=== PATIENT | male | born 1955 | race Caucasian/White ===

== ENCOUNTER 2016-04-06 17:32 | Inpatient (IN) | payer OTHER ==
--- NOTE | 2016-04-06 18:06 | CPEKG ---
Heart Rate: 100 RR Interval: 600 P-R Interval: 133 QRSD Interval: 92 QT Interval: 356 QTC Interval: 460 P [place]: 37 QRS [place]: 13 T Wave [place]: 25 EKG Severity - ABNORMAL ECG - EKG Impression: SINUS TACHYCARDIA EKG Impression: BORDERLINE ST DEPRESSION, ANTEROLATERAL LEADS Electronically Signed By: Amanda Rausch 06-Apr-2016 23:31:36
--- NOTE | 2016-04-06 18:06 | EDPHY ---
H & P Time Seen by Provider: 04/06/16 18:01 HPI/ROS: CHIEF COMPLAINT: Shortness of breath, chest congestion. HISTORY OF PRESENT ILLNESS: The patient is a 61-year old male with a history of mitral valve repair who presents with shortness of breath and fatigue. These symptoms began as a cold with chest congestion and cough. He first noticed the shortness of breath 2 days ago while hiking. It is worsened with exertion or lying down. He denies chest pain. He denies sore throat, rhinorrhea, fever, vomiting, or other complaints. He does believe that the symptoms are due to a viral process rather than of cardiac etiology. He had a transesophageal echocardiogram 02/[address] Faith Arechiga, cardiology, that showed a complication with his mitral valve repair and they are currently considering surgical options. REVIEW OF SYSTEMS: A complete 10-point review of systems was performed and is negative except for those items mentioned in the HPI. Past Medical/Surgical History: Mitral valve repair. Social History: Nonsmoker. Smoking Status: Never smoked Physical Exam: General Appearance: Alert, no distress Eyes: Pupils equal and round, no conjunctival pallor or injection ENT, Mouth: Mucous membranes moist Neck: Normal inspection Respiratory: Rales and crackles. Cardiovascular: 2/6 systolic murmur. Regular rate and rhythm Gastrointestinal: Abdomen is soft and non- tender Neurological: A&O, nonfocal, normal gait Skin: Warm and dry, no rash Extremities: Nontender, no pedal edema Psychiatric: Mood and affect normal Constitutional: Initial Vital Signs Temperature (C) 36.6 C 04/06/16 17:34 Heart Rate 104 H 04/06/16 17:34 Respiratory Rate 16 04/06/16 17:34 Blood Pressure 122/93 H 04/06/16 17:34 O2 Sat (%) 90 L 04/06/16 17:34 O2 Delivery Mode Room Air O2 (L/minute) 2 Allergies/Adverse Reactions: Penicillins Allergy (Unknown, Verified 09/16/12 07:48) Home Medications: Medication Instructions Recorded Zolpidem Tartrate [Ambien 5MG (RX)] 5 mg PO HS PRN 10/01/12 Aspirin EC [Aspirin EC 81 mg (*)] 81 mg PO HS 04/06/16 Cholecalciferol Vit D3 [Vitamin D3 1,000 units PO HS 01/15/17 (*)] Cyanocobalamin (Vitamin B-12) 1,000 mcg PO HS 04/06/16 [B-12] Medical Decision Making - Diagnostics Imaging: Chest x-ray reviewed by Ruel Thakur, radiology, reveals: Findings suggestive of COPD are noted. An element of superimposed congestive heart failure is seen. The asymmetric increased right lung opacity could reflect either pneumonia or atypical pulmonary edema. Study: CTA of the chest. Indication: Positive d-dimer. Results: 1. No evidence of thrombopulmonary embolic disease. 2. Diffuse alveolar opacities, much more pronounced on the right, are probably pneumonia. Given the extent of alveolar opacification and the relatively mild clinical symptomatology, atypical organism should be considered. Pulmonary edema is considered much less likely. 3. See above report for additional findings. The study was read by the radiologist, Dr. Thakur. I viewed the images myself on the PACS system. ED Course/Re-evaluation: Patient presents with shortness of breath. He is sure that he has an upper respiratory infection, though by clinical history does not have a sore throat or nasal congestion, so I concerned that may be a cardiac issue instead. Chest x-ray reveals right-sided infiltrate consistent with pneumonia or unilateral pulmonary edema. D-dimer is 1.65. CT pulmonary angiogram was ordered to rule out pulmonary embolism. Blood cultures were drawn and Levaquin 750 mg IV given. CTA results c/w pneumonia, no evidence of PE. Likely superimposed CHF, with elevated BNP and failed MVR/mitral regurgitation. 1835: Consulted with Dr. Licona, hospitalist. He accepts admission. Differential Diagnosis: Differential diagnosis includes though it is not limited to pneumonia, pneumothorax, pulmonary embolism, aortic dissection, pericarditis, acute coronary syndrome. - Data Points Laboratory Results: Laboratory Results 04/06/16 18:10 04/06/16 18:10 Medications Given: Discontinued Medications Furosemide (Lasix Injection) 40 mg IVP ONCE ONE Stop: 04/06/16 21:46 Last Admin: 04/06/16 22:06 Dose: 40 mg Furosemide (Lasix Injection) 40 mg IVP DAILY EMORY Stop: 10/04/16 08:59 Last Admin: 04/07/16 09:39 Dose: 40 mg Levofloxacin/Dextrose (Levaquin 750 Mg (Premix)) 150 mls @ 100 mls/hr IV EDNOW ONE PRN Reason: Protocol Stop: 04/06/16 19:59 Last Admin: 04/06/16 18:50 Dose: 150 mls Departure - Departure Disposition: [facility] Inpatient Acute Clinical Impression: Shortness of breath Pneumonia Qualifiers: Pneumonia type: due to unspecified organism Laterality: right Lung location: unspecified part of lung Qualifier Code: (J18.9) Pneumonia, unspecified organism Condition: Fair Report Scribed for: Amanda Rausch Report Scribed by: Jose Harkins Date of Report: 04/06/16 Time of Report: 18:02 Physician Review and Approval Statement: 04/06/16 18:02 Portions of this note were transcribed by a medical assistant per diem. I personally performed a history, physical exam, medical decision making, and confirmed accuracy of information the transcribed note.
[2016-04-06 18:20] LABS: % IMMATURE GRANULYOCYTES 0.5 % (0.0-1.1); ABSOLUTE IMMATURE GRANULOCYTES 0.05 10^3/uL (0.00-0.10); ADD DIFF? NO; ADD MORPH? NO; ADD SCAN? NO; ATYPICAL LYMPHOCYTE FLAG 0 (0-99); FRAGMENT RBC FLAG 0 (0-99); HEMATOCRIT 44.3 % (40.0-51.0); HEMOGLOBIN 15.1 g/dL (13.7-17.5); LEFT SHIFT FLG 0 (0-99); LIPEMIA HEMOLYSIS FLAG 90 (0-99); MEAN CELL HEMOGLOBIN 31.1 pg (27.9-34.1); MEAN CELL HEMOGLOBIN CONCENTR. 34.1 g/dL (32.4-36.7); MEAN CELL VOLUME 91.2 fL (81.5-99.8); MEAN PLATELET VOLUME 11.2 fL (8.7-11.7); PLATELET CLUMPS FLAG 0 (0-99); PLATELET COUNT 254 10^3/uL (150-400); RED BLOOD CELL COUNT 4.86 10^6/uL (4.40-6.38); RED CELL DISTRIBUTION WIDTH 12.5 % (11.5-15.2)
[2016-04-06 18:30] LABS: ANION GAP 12 mEq/L (8-16); CALCIUM 8.7 mg/dL (8.5-10.4); CARBON DIOXIDE 25 mEq/l (22-31); CHLORIDE 105 mEq/L (97-110); CREATININE 1.2 mg/dL (0.7-1.3); GLOMERULAR FILTRATION RATE > 60; GLUCOSE 112 mg/dL (70-100); POTASSIUM 4.2 mEq/L (3.5-5.2); SODIUM 142 mEq/L (134-144)
--- NOTE | 2016-04-06 18:36 | DX ---
PA and Lateral Chest - April 06, 2016 Clinical Indications: Cough and shortness of breath in a 61-year-old male. Comparison: October 08, 2012. Findings: Peribronchial thickening is seen and perihilar opacities bilaterally are noted. More prono unced alveolar opacities are seen on the right side. Small pleural effusions are present bilaterally. There is hyperexpansion seen with flattening of the hemidiaphragms noted. The heart is borderline e nlarged and there is mild pulmonary venous redistribution. Postoperative changes of valvular replacem ent are seen. Impression: Findings suggestive of COPD are noted. An element of superimposed congestive heart failur e is seen. The asymmetric increased right lung opacity could reflect either pneumonia or atypical pul monary edema. A preliminary report was called to Dr. Amanda Rausch at 1830 hours in the Emergency Department.
[2016-04-06 18:42] LABS: TROPONIN I 0.024 ng/mL (0-0.034)
[2016-04-06] MEDS ORDERED: IOPAMIDOL (ISOVUE 370) 75 ML BTL IV ONE (18:53)
--- NOTE | 2016-04-06 20:33 | CT ---
CT Pulmonary Angiogram Clinical Indications: Shortness of breath, alveolar opacities and elevated D-dimer, in a 61-year-old male with a cardiac history. Evaluate for pulmonary embolic disease. Technique: Thinly collimated multidetector helical CT imaging was performed through the chest while 90 mL of Isovue-370 were injected intravenously without complication. The images were obtained at 4- mm thickness and reconstructed at 1.5-mm thickness. Sagittal and coronal reconstructions were perform ed. The examination was reviewed on the workstation by the interpreting physician at multiple window/ level settings. Dose reduction techniques were utilized. Findings: Chest: There is extensive right lung alveolar opacification with numerous air bronchograms. A large right pleural effusion is identified. Patchy left lung alveolar opacities are noted and there is a mo derate left pleural effusion. Bibasilar atelectasis is noted. The heart is enlarged and postoperative changes of mitral valve replacement are seen. The upper abdomen is negative for acute abnormality on this arterial phase study. CT Pulmonary Angiogram: The pulmonary arterial system is well opacified. No intraluminal filling d efects are seen to suggest acute or chronic thrombopulmonary embolic disease. No vascular malformatio ns are seen. There is mild dilatation of the ascending aorta with a diameter estimated at 3.8 cm. No dissection is seen. Impression: 1. No evidence of thrombopulmonary embolic disease. 2. Diffuse alveolar opacities, much more pronounced on the right, are probably pneumonia. Given the e xtent of alveolar opacification and the relatively mild clinical symptomatology, atypical organism sh ould be considered. Pulmonary edema is considered less likely. 3. See above report for additional findings. A preliminary report was called to Dr. Amanda Rausch at 2005 hours in the Emergency Department.
--- NOTE | 2016-04-06 21:33 | PDGENHP ---
History and Physical History and Physical: Chief Complaint: shortness of breath History of presenting illness: This is a 61 yo male with history of mitral valvuloplasty ring repair for severe mitral regurgitation done by Dr. Yen in September of 2012 who presents with 2 days of intermittent shortness of breath. Patient has been hiking the past few days and reports increased dyspnea on exertion. His shortness of breath is worse with laying flat. He endorses 3 pillow orthopnea. Denies any leg swelling. He denies any chest pain. He denies any weight gain. He has been taking Mucinex and Tylenol which have helped with some congestion that he has but not with his shortness of breath. He denies any fevers or chills. He reports an occasional nonproductive cough. His for had upper respiratory infection a few weeks ago which had some of the same characteristics. 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 Faith Arechiga last month where a transesophageal echocardiogram was done that showed moderate to severe mitral regurgitation. He has been in discussions with Dr. Claudio regarding mitral valve surgery. Past medical history: BPH, mitral valve regurgitation Past surgical history: Mitral valvuloplasty ring and closure of a left atrial appendage done by Dr. Yen in 2012 Home medications: Reviewed refer to [facility] for details Allergies: Penicillin Social history: Denies any tobacco use. He drinks alcohol occasionally. He lives at [place] with his and children Family history: Reviewed and noncontributory Review of systems: A comprehensive 10 point review systems was done that was negative except for what was mentioned in the HPI and below. PHYSICAL EXAM: Selected Entries 04/06/16 04/06/16 17:34 21:04 Heart Rate 97 Respiratory 18 Rate O2 Sat (%) 90 L 91 L Temperature (C) 36.9 C Blood Pressure 116/78 Mean Arterial 90 Pressure (MAP) O2 (L/minute) 3.5 O2 Delivery Room Air Nasal Cannula Mode GENERAL: Well-appearing, no acute distress, nontoxic appearing HEENT: Head is normocephalic atraumatic, eyes are PERRLA, ears are normal appearing, mucous membranes are moist without lesions CARDIOVASCULAR: Regular rate and rhythm; normal S1 and S2, Loud systolic murmur loudest at the apex ; palpable thrill ; there is no JVD there is no lower extremity edema PULMONARY: diminished breath sounds right base with some dullness to percussion ; no respiratory distress ;no wheezes or rales ABDOMINAL/GASTROINTESTINAL: Soft, nontender, nondistended with normoactive bowel sounds. There is no guarding or rebound tenderness. GENITOURINARY: No Chambers in place EXTREMITIES: No clubbing, cyanosis, or edema NEUROLOGIC: Cranial nerves 2-12 are grossly intact; face symmetric; moves all other extremities; speech is fluent; alert and oriented to person, place, and time SKIN: There are no rashes; I did not examine the patient for decubiti Diagnostics: 04/06/16 04/06/16 18:10 18:40 WBC 10.78 H Hgb 15.1 Hct 44.3 Plt Count 254 D-Dimer 1.65 H VBG Lactic Acid 1.4 Sodium 142 Potassium 4.2 Chloride 105 Carbon Dioxide 25 Anion Gap 12 BUN 19 Creatinine 1.2 Estimated GFR > 60 Calcium 8.7 Troponin I 0.024 NT-Pro-B Natriuret Pep 2990 H Imaging: I reviewed the CT angiogram with Dr. Thakur see the results below: Impression: 1. No evidence of thrombopulmonary embolic disease. 2. Diffuse alveolar opacities, much more pronounced on the right, are probably pneumonia. Given the extent of alveolar opacification and the relatively mild clinical symptomatology, atypical organism should be considered. Pulmonary edema is considered less likely. 3. See above report for additional findings. Visualized and personally interpreted the EKG that showed sinus tachycardia at rate 100 beats per minute some ST depression in leads V1 Transesophageal echocardiogram done in February of 2016 was reviewed showing: Moderate to severe mitral regurgitation Assessment/plan: This is a 61 yo male with history of mitral valve repair presenting with dyspnea on exertion and orthopnea most likely due to: # Acute systolic congestive heart failure with known moderate to severe mitral regurgitation - I discussed case with Dr. Bonilla from cardiology will see the patient in consultation tomorrow. - Start IV Lasix overnight - consider thoracentesis tomorrow as indicated # Diffuse alveolar opacities most likely due to pulmonary edema however per Radiology there is some concerns for a atypical pneumonia. Clinically the patient's symptoms are more consistent with acute heart failure. - Blood cultures have been drawn in the emergency department - will continue Levaquin that was started in the emergency department and consider discontinuing antimicrobials if he improves with diuretics #BPH, chronic # Random glucose of 112 - recommend outpatient screening for diabetes mellitus patient will be admitted to the hospital under inpatient status.
[2016-04-06] MEDS ORDERED: ACETAMINOPHEN 325 MG TAB PO PRN (21:45)
[2016-04-06] MEDS ORDERED: ONDANSETRON 4 MG/2 ML VIAL IVP PRN (21:45)
[2016-04-06] MEDS ORDERED: FUROSEMIDE 40 MG/4 ML VIAL IVP ONE (21:45)
[2016-04-06] MEDS ORDERED: ZOLPIDEM TARTRATE 5 MG TAB PO PRN (21:46)
[2016-04-07 04:55] LABS: % IMMATURE GRANULYOCYTES 0.5 % (0.0-1.1); ABSOLUTE IMMATURE GRANULOCYTES 0.05 10^3/uL (0.00-0.10); ADD DIFF? NO; ADD MORPH? NO; ADD SCAN? NO; ATYPICAL LYMPHOCYTE FLAG 10 (0-99); FRAGMENT RBC FLAG 0 (0-99); HEMATOCRIT 39.9 % (40.0-51.0); HEMOGLOBIN 13.7 g/dL (13.7-17.5); LEFT SHIFT FLG 0 (0-99); LIPEMIA HEMOLYSIS FLAG 90 (0-99); MEAN CELL HEMOGLOBIN 31.7 pg (27.9-34.1); MEAN CELL HEMOGLOBIN CONCENTR. 34.3 g/dL (32.4-36.7); MEAN CELL VOLUME 92.4 fL (81.5-99.8); MEAN PLATELET VOLUME 11.3 fL (8.7-11.7); PLATELET CLUMPS FLAG 40 (0-99); PLATELET COUNT 219 10^3/uL (150-400); RED BLOOD CELL COUNT 4.32 10^6/uL (4.40-6.38); RED CELL DISTRIBUTION WIDTH 12.4 % (11.5-15.2)
[2016-04-07 05:10] LABS: ANION GAP 8 mEq/L (8-16); CALCIUM 8.4 mg/dL (8.5-10.4); CARBON DIOXIDE 27 mEq/l (22-31); CHLORIDE 105 mEq/L (97-110); CREATININE 1.1 mg/dL (0.7-1.3); GLOMERULAR FILTRATION RATE > 60; GLUCOSE 97 mg/dL (70-100); POTASSIUM 4.5 mEq/L (3.5-5.2); SODIUM 140 mEq/L (134-144)
[2016-04-07] MEDS ORDERED: FUROSEMIDE 40 MG/4 ML VIAL IVP SCH (09:00)
[2016-04-07] MEDS: ENOXAPARIN 40 MG/0.4 ML SYR SC SCH (09:43)
--- NOTE | 2016-04-07 09:46 | SOAPPROG ---
JOJO Progress Note Assessment/Plan: Assessment:1.mv repair 2013..now with mod/severe MR...assessing re do surgery...now with chf ?worsened with recent uri...plan lasix siuresis for now and thoracentesis if needed Plan:1. as ordered 04/07/16 09:44 Subjective: pt feeling better today...discussed options with pt..for now will continue iv lasix diuresis and re check cxr tomorrow..if pleural effusion worse the thoracentesis Objective: Vital Signs Temp Pulse Resp BP Pulse Ox 36.7 C 93 18 98/74 L 93 04/07/16 08:00 04/07/16 08:00 04/07/16 08:00 04/07/16 08:00 04/07/16 08:00 Laboratory Results 04/07/16 04:41 04/07/16 04:41 04/06/16 04/07/16 04/08/16 05:59 05:59 05:59 Intake Total 450 Output Total 1200 Balance -750 Physical Exam - Physical Exam Respiratory: crackles Cardiac/Chest: normal peripheral pulses, regular rate, rhythm, systolic murmur, No JVD ICD10 Worksheet Patient Problems: Problems Problem Status Diagnosed Pneumonia Acute Shortness of breath Acute
--- NOTE | 2016-04-07 19:04 | HOSPPROG ---
Hospitalist Progress Note Assessment/Plan: * Acute respiratory failure - CHF vs. atypical PNA -s/p IV lasix -continue levaquin * Pleural effusion - small -recheck CXR in am after diuresis - doubt thoracentesis needed * Hypotension - suspect due to IV lasix -decrease lasix - change to PO * Mod/severe MR s/p failed MV repair -re-do mitral valve replacement pending Subjective: SOB much better since admission Objective: Vital Signs Temp Pulse Resp BP Pulse Ox 36.7 C 87 16 89/70 L 93 04/07/16 16:00 04/07/16 16:00 04/07/16 16:00 04/07/16 16:00 04/07/16 16:00 Laboratory Results 04/07/16 04:41 04/07/16 04:41 04/06/16 04/07/16 04/08/16 05:59 05:59 05:59 Intake Total 450 700 Output Total 1200 1350 Balance -750 -650 d/w Dr. Eldridge - keep in hospital until am - try to avoid paracentesis CT chest: bilateral infiltrates more c/w atypical infection rather than CHF - Physical Exam Constitutional: no apparent distress, appears nourished, not in pain Cardiovascular: regular rate and rhythym, no murmur, rub, or gallop Respiratory: no respiratory distress, no rales or rhonchi, clear to auscultation , inspiratory crackles Gastrointestinal: normoactive bowel sounds, soft, non-tender abdomen, no palpable masses Skin: no rashes or abrasions, no fluctuance, no induration Neurologic: AAOx3, sensation intact bilaterally Psychiatric: interacting appropriately, not anxious, not encephalopathic, thought process linear ICD10 Worksheet Patient Problems: Problems Problem Status Diagnosed Pneumonia Acute Shortness of breath Acute
[2016-04-07] MEDS ORDERED: ASPIRIN EC 81 MG TAB PO SCH (21:00)
[2016-04-07 22:55] VITALS: RESP 18
[2016-04-08 05:07] LABS: % IMMATURE GRANULYOCYTES 0.7 % (0.0-1.1); ABSOLUTE IMMATURE GRANULOCYTES 0.06 10^3/uL (0.00-0.10); ADD DIFF? NO; ADD MORPH? NO; ADD SCAN? NO; ATYPICAL LYMPHOCYTE FLAG 10 (0-99); FRAGMENT RBC FLAG 0 (0-99); HEMATOCRIT 41.1 % (40.0-51.0); HEMOGLOBIN 13.9 g/dL (13.7-17.5); LEFT SHIFT FLG 0 (0-99); LIPEMIA HEMOLYSIS FLAG 90 (0-99); MEAN CELL HEMOGLOBIN 31.5 pg (27.9-34.1); MEAN CELL HEMOGLOBIN CONCENTR. 33.8 g/dL (32.4-36.7); MEAN CELL VOLUME 93.2 fL (81.5-99.8); MEAN PLATELET VOLUME 11.4 fL (8.7-11.7); PLATELET CLUMPS FLAG 0 (0-99); PLATELET COUNT 222 10^3/uL (150-400); RED BLOOD CELL COUNT 4.41 10^6/uL (4.40-6.38); RED CELL DISTRIBUTION WIDTH 12.6 % (11.5-15.2)
[2016-04-08 05:20] LABS: ANION GAP 8 mEq/L (8-16); CALCIUM 8.6 mg/dL (8.5-10.4); CARBON DIOXIDE 29 mEq/l (22-31); CHLORIDE 102 mEq/L (97-110); GLOMERULAR FILTRATION RATE > 60; GLUCOSE 91 mg/dL (70-100); POTASSIUM 4.3 mEq/L (3.5-5.2); SODIUM 139 mEq/L (134-144)
[2016-04-08 05:34] VITALS: O2SAT 96
[2016-04-08 08:31] VITALS: BP 84/64; PULSE 82; TEMP 98.1
[2016-04-08] MEDS: ENOXAPARIN 40 MG/0.4 ML SYR SC SCH (08:39)
[2016-04-08] MEDS ORDERED: FUROSEMIDE 20 MG TAB PO SCH (09:00)
--- NOTE | 2016-04-08 09:44 | PDCARPN ---
Cardiology Progress Note Assessment/Plan: Assessment/plan: 61-year-old male with mitral valve regurgitation status post mitral valve repair in 2013. This repair his field in the now has severe mitral regurgitation along with significant tricuspid regurgitation. He was admitted on 04/06 with a combination of pneumonia (likely viral versus atypical bacterial) and heart failure. He has improved with diuresis and antibiotics. 1. heart failure: Appears to be related to his valvular disease and triggered by pneumonia. Agree with joe Stewart. He has not previously been able to tolerate beta-blockers and John inhibitors due to underlying low blood pressure. We discussed the increased urgency for redo valve surgery. He has seen Dr. Claudio and would also like to visit with Dr. Strong 2. Pneumonia: Flu is negative. Legionella is pending. On Levaquin. He will complete this course. 3. Wide complex tachycardia: This was asymptomatic. He had a single 6 beat run. He has previously been unable to tolerate beta-blockers. Ejection fraction is above 35%. Previously did not have coronary disease. He appears stable for discharge from a cardiac standpoint. Discussed with Dr. Orellana 04/08/16 10:43 Subjective: Reynaldo feels better. His shortness of breath has improved since admission. He does feel little bit short of breath when lying down. The only time he notices the cough with as with lying down. At the end of last week he developed cough that was not productive. He has not had a fever. He has not had swelling. He denies palpitations, chest pain, syncope. His had had a cold a week previously. Reviewed/Discussed With: hospitalist Objective: Vital Signs (8 Hrs) Temp Pulse Resp BP Pulse Ox 04/08/16 08:00 36.7 C 82 18 84/64 L 96 04/08/16 04:00 36.8 C 59 L 18 92/69 L 96 Intake/Output (24 Hrs) 04/07/16 04/08/16 04/09/16 05:59 05:59 05:59 Intake Total 450 1150 Output Total 1200 2050 Balance -750 -900 Intake: Oral (ml) 350 1150 IV Infused (ml) 100 Output: Urine (ml) 1200 2050 Toilet 900 2050 Other: Weight 59.6 kg Number of Voids Toilet 2 2 Number of Stools Toilet 1 No acute distress. JVP less than 10. regular rate and rhythm with harsh holosystolic murmur heard throughout the precordium. No S3. No S4. Occasional rhonchi throughout the right lung, more prominent at the right base. No lower extremity edema Neuro alert and oriented x3 without gross focal neurologic deficits. Appropriate mood and affect chest x-ray reviewed x2: today's film compared with admission shows worsening consolidation in the right lung. However bilateral pleural effusions are Improved. Result Diagrams: 04/08/16 04:00 04/08/16 04:00 EKG: reviewed from 04/06: Sinus rhythm with minimal anterolateral ST depression Telemetry: sinus rhythm. A 6 beat run of wide complex tachycardia on 04/07 ICD10 Worksheet Patient Problems: Problems Problem Status Diagnosed Pneumonia Acute Shortness of breath Acute
--- NOTE | 2016-04-08 10:55 | DX ---
Chest, One View Portable at 0625 hours History: Congestive heart failure, dyspnea. Comparison: April 06, 2016 Findings: Cardiac silhouette is mildly enlarged. Worsening diffuse bilateral increased interstitial markings likely representing worsening congestive heart failure. No definite pleural effusion. No pne umothorax. Impression: 1. Worsening bilateral diffuse interstitial pulmonary edema. 2. No pneumothorax
--- NOTE | 2016-04-08 20:05 | GDS ---
[f rep st] DISCHARGE SUMMARY DISCHARGE DIAGNOSES: 1. Atypical pneumonia. 2. Acute respiratory failure. 3. Chronic hypotension. 4. Moderate to severe mitral regurgitation, status post failed mitral valve repair. HISTORY: The patient is a 61-year-old male, who presented with increasing shortness of breath and bi lateral pulmonary infiltrates. CT angiogram of chest was negative for PE. Infiltrates by CT were mo re consistent with atypical infection. He does, however, have [id number] mitral regurgitatio n and has had a previous mitral valve repair which is failing and pending redo. His shortness of isabella ath was very positional in nature with PND and orthopnea, so CHF was felt to be a definite component. He was seen here in consultation with cardiology. He received both Lasix and antibiotics and he di d improve. After diuresis, followup chest x-ray did show some ongoing blossoming of infiltrates, whi ch makes me think infection is the more predominant underlying problem. Perhaps his known valvular d isease, however, did lead to some superimposed pulmonary edema. He did improve with antibiotics. His diuresis is limited by hypotension. We do not feel that he is going to need chronic Lasix, so he wa s given a prescription at discharge only for as needed. He was initially thought to have a pleural e ffusion; however, repeat chest x-ray showed this to be quite minimal and no thoracentesis was needed. He will continue to follow up closely with Cardiology and CT surgery regarding his eventual need fo r a mitral valve replacement. DISCHARGE MEDICATIONS: Please see computer record for full detailed list. New medications: 1. Levaquin 750 mg p.o. daily for 7 more days. 2. Lasix 20 mg p.o. daily as needed for persistent shortness of breath and positional orthopnea jesus tional. DISCHARGE INSTRUCTIONS: Follow up with Cardiology and CT Surgery regarding needed mitral valve repla cement. Greater than 30 minutes' of time was spent arranging discharge. Patient seen and examined by me on day of discharge. /[id number]/MODL
== END 2016-04-08 11:36 | disposition home or self-care (01) | DRG 193 ==
LOC: F2W 21:15
PROVIDERS: ADMIT Family Medicine; ATTEND Internal Medicine
DX: J18.9 Pneumonia, unspecified organism (principal); J96.00 Acute respiratory failure, unspecified whether with hypoxia or hypercapnia; J90 Pleural effusion, not elsewhere classified; I34.0 Nonrheumatic mitral (valve) insufficiency; I50.9 Heart failure, unspecified
CPT/HCPCS: 87449-90; 96365; 96366; J1650; J1956

== ENCOUNTER 2016-04-24 08:52 | Observation (INO) | payer OTHER ==
[2016-04-24] MEDS ORDERED: NS 1,000 ML IV ONE (08:55)
[2016-04-24] MEDS ORDERED: ASPIRIN EC 325 MG TAB PO ONE (08:55)
[2016-04-24] MEDS ORDERED: DIAZEPAM 5 MG TAB PO ONE (08:55)
[2016-04-24] MEDS ORDERED: diphenhydrAMINE 25 MG CAP PO ONE (08:55)
[2016-04-24] MEDS ORDERED: FAMOTIDINE 20 MG TAB PO ONE (08:55)
--- NOTE | 2016-04-24 09:17 | CPEKG ---
Heart Rate: 86 RR Interval: 698 P-R Interval: 160 QRSD Interval: 94 QT Interval: 416 QTC Interval: 498 P [place]: 54 QRS [place]: 12 T Wave [place]: 30 EKG Severity - BORDERLINE ECG - EKG Impression: SINUS RHYTHM EKG Impression: BORDERLINE PROLONGED QT INTERVAL EKG Impression: SUPRAVENTICULAR PREMATURE CONTRACTIONS Electronically Signed By: Ghazala Hedrick 24-Apr-2016 15:57:17
[2016-04-24 09:37] LABS: % IMMATURE GRANULYOCYTES 0.3 % (0.0-1.1); ABSOLUTE IMMATURE GRANULOCYTES 0.02 10^3/uL (0.00-0.10); ADD DIFF? NO; ADD MORPH? NO; ADD SCAN? NO; ATYPICAL LYMPHOCYTE FLAG 0 (0-99); FRAGMENT RBC FLAG 0 (0-99); HEMATOCRIT 42.8 % (40.0-51.0); HEMOGLOBIN 14.3 g/dL (13.7-17.5); LEFT SHIFT FLG 0 (0-99); LIPEMIA HEMOLYSIS FLAG 80 (0-99); MEAN CELL HEMOGLOBIN 31.4 pg (27.9-34.1); MEAN CELL HEMOGLOBIN CONCENTR. 33.4 g/dL (32.4-36.7); MEAN CELL VOLUME 93.9 fL (81.5-99.8); MEAN PLATELET VOLUME 11.3 fL (8.7-11.7); PLATELET CLUMPS FLAG 0 (0-99); PLATELET COUNT 262 10^3/uL (150-400); RED BLOOD CELL COUNT 4.56 10^6/uL (4.40-6.38)
[2016-04-24 09:47] LABS: INR 1.09 (0.83-1.16)
[2016-04-24 09:54] LABS: ANION GAP 8 mEq/L (8-16); CALCIUM 8.7 mg/dL (8.5-10.4); CARBON DIOXIDE 28 mEq/l (22-31); CHLORIDE 105 mEq/L (97-110); CHOLESTEROL 146 mg/dL (140-220); CHOLESTEROL/HDL RATIO 2.98 RATIO (1.00-4.97); GLOMERULAR FILTRATION RATE > 60; GLUCOSE 91 mg/dL (70-100); HIGH DENSITY LIPOPROTEIN 49 mg/dL (40-65); LDL/HDL RATIO 1.69 RATIO (1.00-3.64); LOW DENSITY LIPOPROTEIN 83 mg/dL (80-100); NON-HIGH DENSITY LIPOPROTEIN 97 mg/dL (90-129); POTASSIUM 4.6 mEq/L (3.5-5.2); SODIUM 141 mEq/L (134-144); TRIGLYCERIDE 71 mg/dL (40-150); VERY LOW DENSITY LIPOPROTEINS 14 mg/dL (8-25)
[2016-04-24] MEDS ORDERED: LIDOCAINE 1% 30 ML SDV ONE (11:11)
[2016-04-24] MEDS ORDERED: VERAPAMIL 5 MG/2 ML VIAL ONE (11:12)
[2016-04-24] MEDS ORDERED: fentaNYL 100 MCG/2 ML INJ ONE (11:12)
[2016-04-24] MEDS ORDERED: MIDAZOLAM 2 MG/2 ML VIAL ONE (11:12)
[2016-04-24] MEDS ORDERED: IOPAMIDOL (ISOVUE-370) 150 ML BTL IV ONE ×2 (11:12→12:15)
[2016-04-24] MEDS ORDERED: HEPARIN 10,000 UNIT/10 ML MDV ONE (11:12)
--- NOTE | 2016-04-24 12:42 | PDDXCAT ---
Diagnostic Cath Note - . Date: 04/24/16 Intervention: None Heat Treater Helper: Dr. David Dean Indication: Diagnostic catheterization pre mitral valve replacement scheduled tomorrow 04/25/[address] Strong. *Procedure Access: right radial Procedure: left heart catheterization, coronary angiography, left ventriculogram , right heart catheterization *Materials Left Heart Cath size: 5F Left Heart Cath materials: JL3.5, JR4.0, pigtail Right Heart Cath size: 5F Right Heart Cath materials: PWP catheter *Findings-Left Heart Catheterization LM: 6 mm in size. Bifurcates into an LAD and circumflex system. No disease is identified. LAD: 4.5 mm in size. There is no evidence of flow-limiting disease with MACRINA III flow throughout. LCX: 2.5 mm in size. There is no evidence of flow-limiting disease with MACRINA III flow throughout. RCA: Dominant (gives rise to PDA and PLV branches), 5 mm in size. There is no evidence of flow-limiting disease with MACRINA III flow throughout. EDP: 14 mmHg LVEF: 42% via planimetry Wall motion: Distal anterior wall and apical hypokinesis The visualized portion of the thoracic aorta revealed three sinuses of Valsalva. There was no evidence of aneurysm or dissection. There is severe mitral regurgitation with severe left atrial enlargement. *Findings-Right Heart Catheterization RA: 14/10/9 mmHg; SVC = 64.7% RV: 56/7/15 mmHg PA: 62/27/42 mmHg; PA SAT = 63.9% PAOP: 25/44/28 mmHg; There are large V waves on pressure trace consistent with severe mitral regurgitation. AO: 85/57/69 mmHg; AO SAT = 93.9% CO: 3.6 L/min CI: 2.14 L/min/m^2 *Summary Complications: None Estimated blood loss: <50ml Closure method: TR Band Assessment: There is moderate pulmonary hypertension with large V waves in the pulmonary capillary wedge tracing consistent with severe mitral regurgitation and severe left atrial enlargement with reduced ejection fraction of the left ventricle measured at 42% with planimetry. There is no evidence of coronary artery disease or flow-limiting obstruction with MACRINA III flow throughout the right dominant coronary circulation. Patient Problems: Problems Problem Status Diagnosed Pneumonia Acute Shortness of breath Acute
[2016-04-24] MEDS ORDERED: ACETAMINOPHEN 325 MG TAB PO PRN (12:44)
[2016-04-24] MEDS ORDERED: ATROPINE SULFATE 1 MG/10 ML SYR IVP PRN (12:44)
[2016-04-24] MEDS ORDERED: NITROGLYCERIN 0.4 MG BTL SL PRN (12:44)
[2016-04-24] MEDS ORDERED: ONDANSETRON DISINTEGRATING 4 MG TAB PO PRN (12:44)
[2016-04-24] MEDS ORDERED: ONDANSETRON 4 MG/2 ML VIAL IVP PRN (12:44)
[2016-04-24] MEDS ORDERED: ZOLPIDEM TARTRATE 5 MG TAB PO PRN (13:47)
[2016-04-24 15:48] VITALS: BP 83/60; PULSE 71; RESP 18; TEMP 98.1; O2SAT 95
[2016-04-24] MEDS ORDERED: CHLORHEXIDINE GLUC HIBICLENS 118 ML BTL TP ONE (15:48)
--- NOTE | 2016-04-24 16:42 | US ---
Bilateral Duplex Carotid Sonography Clinical Indications: Follow-up for carotid artery disease. Preoperative evaluation prior to mitral v alve replacement surgery. Technique: The cervical portions of the carotid and vertebral arteries were imaged and interrogated by color and pulsed Doppler. Spectral analysis was performed. Findings: Comparison the prior ultrasound study from March 31, 2013. Right Carotid: The common carotid artery, bifurcation, and origin of the internal and external carot id artery are well imaged. No significant plaque is identified. Doppler velocity estimates and color Doppler spectra are normal. No evidence of flow-limiting stenosis. No focal plaque identified. Left Carotid: The common carotid artery, bifurcation, and origin of the internal and external caroti d artery are well imaged. No significant plaque is identified. Doppler velocity estimates and color Doppler spectra are normal. No evidence of flow-limiting stenosis. No focal plaque identified.. Vertebral Arteries: Antegrade flow is shown by pulsed Doppler of each vertebral artery. Impression: No evidence of flow-limiting carotid stenosis. No significant plaque formation on either side stable when compared to the prior study. Measurement of carotid stenosis is based on velocity parameters that correlate the residual internal carotid diameter with [place] Symptomatic Carotid Endarterectomy Trial (NASCET) based stenosis levels.
[2016-04-24] MEDS ORDERED: CYANO/VITAMIN B12 1000 MCG TAB PO SCH (21:00)
[2016-04-24] MEDS ORDERED: MUPIROCIN 2% 22 GM OINT NS SCH (21:00)
[2016-04-24] MEDS ORDERED: NON-FORMULARY NEW DRUG (Cyanocobalamin (Vitamin B-12) [B-12] 1,000 MCG) PO SCH (21:00)
[2016-04-24] MEDS ORDERED: ASPIRIN EC 81 MG TAB PO SCH (21:00)
[2016-04-24] MEDS ORDERED: CHOLECALCIFEROL VIT D3 1,000 UNITS TAB PO SCH (21:00)
== END 2016-04-24 17:27 | disposition home or self-care (01) ==
LOC: FCATH 08:52 → F2W 12:53 → INTOOBSV 12:53 → F2W 14:45 → UNDODISIN 15:11
PROVIDERS: ADMIT Thoracic Surgery (Cardiothoracic Vascular Surgery); ATTEND Thoracic Surgery (Cardiothoracic Vascular Surgery)
PROC: 4A023N8 Measurement of Cardiac Sampling and Pressure, Bilateral, Percutaneous Approach (ICD-10-PCS; principal; 2016-04-24)
PROC: B2111ZZ Fluoroscopy of Multiple Coronary Arteries using Low Osmolar Contrast (ICD-10-PCS; 2016-04-24)
PROC: B2151ZZ Fluoroscopy of Left Heart using Low Osmolar Contrast (ICD-10-PCS; 2016-04-24)
DX: Z01.810 Encounter for preprocedural cardiovascular examination (principal); I34.0 Nonrheumatic mitral (valve) insufficiency; I51.7 Cardiomegaly; I27.2 Other secondary pulmonary hypertension; Z98.890 Other specified postprocedural states
CPT/HCPCS: 93005; 93460; 93880; C1769; J1644; J2250; J3010; Q9967

== ENCOUNTER 2016-04-25 05:55 | Inpatient (IN) | payer OTHER ==
[2016-04-25] MEDS ORDERED: PROTAMINE SULFATE 50 MG/5 ML VIAL IVP ONE (06:21)
[2016-04-25] MEDS ORDERED: POTASSIUM Cl (KCl) 20 MEQ/50 ML BAG IV ONE (06:22)
[2016-04-25] MEDS ORDERED: CALCIUM CHLORIDE 1 GM/10 ML INJ ONE ×2 (06:22→06:26)
[2016-04-25] MEDS ORDERED: MILRINONE/DEXTROSE/100 ML BAG IV ONE (06:22)
[2016-04-25] MEDS ORDERED: NA BICARBONATE 50 MEQ/50 ML VIAL ONE (06:23)
[2016-04-25] MEDS ORDERED: DOPamine/DEXTROSE/250 ML BAG IV ONE (06:23)
[2016-04-25] MEDS ORDERED: niCARdipine/NACL/200 ML BAG IV ONE (06:23)
[2016-04-25] MEDS ORDERED: AMINOCAPROIC ACID 5 GM/20 ML VIAL ONE ×2 (06:23→06:26)
[2016-04-25] MEDS ORDERED: AMIODARONE HCL 150 MG/3 ML VIAL ONE ×2 (06:24→06:26)
[2016-04-25] MEDS ORDERED: ADENOSINE 6 MG/2 ML VIAL ONE (06:24)
[2016-04-25] MEDS ORDERED: HEPARIN 10,000 UNIT/10 ML MDV ONE ×2 (06:25→06:27)
[2016-04-25] MEDS ORDERED: ceFAZolin 1 GM VIAL ONE (06:25)
[2016-04-25] MEDS ORDERED: LIDOCAINE 2% 100 MG/5 ML SYR IVP ONE ×2 (06:26→07:29)
[2016-04-25] MEDS ORDERED: ALBUMIN 5% 250 ML BOTTLE IV ONE (06:26)
[2016-04-25] MEDS ORDERED: methylPREDNISolone SOD SUCC 1 GM/8 ML VIAL ONE (06:27)
[2016-04-25] MEDS ORDERED: MAGNESIUM SULFATE 1 GM/2 ML VIAL ONE (06:27)
[2016-04-25] MEDS ORDERED: LR 1,000 ML IV ONE (06:41)
[2016-04-25] MEDS ORDERED: LIDOCAINE 1% 5 ML SDV ID PRN (06:41)
[2016-04-25] MEDS ORDERED: MUPIROCIN 2% 22 GM OINT ONE (06:48)
[2016-04-25] MEDS ORDERED: LIDOCAINE 1% 5 ML SDV ONE (06:48)
[2016-04-25] MEDS ORDERED: CEFAZOLIN 2 GM/DEXTROSE/100 ML BAG IV ONE (06:48)
[2016-04-25] MEDS ORDERED: SKIN ADHESIVE (DERMABOND) 1 EACH TP ONE (06:53)
[2016-04-25] MEDS ORDERED: MINERAL OIL 10 ML VIAL TP ONE (06:54)
[2016-04-25] MEDS ORDERED: CITRATE DEXTROSE SOLN 500 ML BAG ONE (06:54)
[2016-04-25] MEDS ORDERED: MIDAZOLAM 2 MG/2 ML VIAL ONE ×3 (07:06→07:25)
[2016-04-25] MEDS ORDERED: PROPOFOL/EMULSION 500 MG/50 ML BOTTLE IV ONE ×2 (07:25→10:56)
[2016-04-25] MEDS ORDERED: REMIFENTANIL HCL 1 MG VIAL ONE ×2 (07:25→10:56)
[2016-04-25] MEDS ORDERED: fentaNYL 250 MCG/5 ML INJ ONE (07:25)
[2016-04-25] MEDS ORDERED: ROCURONIUM 100 MG/10 ML VIAL ONE ×2 (07:28→13:58)
[2016-04-25] MEDS ORDERED: ROCURONIUM 50 MG/5 ML VIAL ONE (07:28)
[2016-04-25] MEDS ORDERED: DEXAMETHASONE 4 MG/ML VIAL ONE ×2 (07:29)
[2016-04-25] MEDS ORDERED: ONDANSETRON 4 MG/2 ML VIAL ONE (07:29)
[2016-04-25] MEDS ORDERED: PHENYLEPHRINE HCL 100 MCG/ML SYR ONE ×2 (07:39→09:14)
[2016-04-25] MEDS ORDERED: epHEDrine SULFATE 10 MG/ML SYR ONE ×3 (07:39→08:06)
[2016-04-25] MEDS ORDERED: MAGNESIUM SULF 2 GM/WATER 50 ML BAG IV ONE (11:18)
[2016-04-25] MEDS ORDERED: morphINE *ANESTHESIA ONLY* 10 MG/ML VIAL ONE (12:21)
[2016-04-25] MEDS ORDERED: PROPOFOL 200 MG/20 ML VIAL ONE (12:21)
[2016-04-25] MEDS ORDERED: SUGAMMADEX SODIUM 200 MG/2 ML VIAL IVP ONE (12:30)
[2016-04-25] MEDS ORDERED: CEPACOL LOZENGE PO PRN (13:00)
[2016-04-25] MEDS ORDERED: METOCLOPRAMIDE 10 MG/2 ML VIAL IVP PRN (13:00)
[2016-04-25] MEDS ORDERED: POTASSIUM Cl (KCl) 50 ML IV PRN (13:00)
[2016-04-25] MEDS ORDERED: ACETAMINOPHEN 650 MG SUPP PR PRN (13:00)
[2016-04-25] MEDS ORDERED: ONDANSETRON 4 MG/2 ML VIAL IVP PRN (13:00)
[2016-04-25] MEDS ORDERED: LACTULOSE 20 GM/30 ML UDCUP PO PRN (13:00)
[2016-04-25] MEDS ORDERED: SODIUM CL NASAL 45 ML BTL EACHNARE PRN (13:00)
[2016-04-25] MEDS ORDERED: NS 1,000 ML IV SCH (13:00)
[2016-04-25] MEDS ORDERED: POLYETHYLENE GLYCOL 3350 17 GM PKT PO PRN (13:00)
[2016-04-25] MEDS ORDERED: MAGNESIUM HYDROXIDE 30 ML UDCUP PO PRN (13:00)
[2016-04-25] MEDS ORDERED: INSULIN REGULAR HUMAN 100 UNIT in NS 100 ML IV SCH (13:00)
[2016-04-25] MEDS ORDERED: ACETAMINOPHEN 325 MG TAB PO PRN (13:00)
[2016-04-25] MEDS ORDERED: D50W 25 GM/50 ML SYR IVP PRN (13:00)
[2016-04-25] MEDS ORDERED: MEPERIDINE 25 MG/ML SYR IVP PRN (13:00)
[2016-04-25] MEDS ORDERED: MAGNESIUM SULF 2 GM/WATER 50 ML IV ONE (13:00)
[2016-04-25] MEDS ORDERED: BISACODYL 10 MG SUPP PR PRN (13:00)
[2016-04-25] MEDS ORDERED: ONDANSETRON DISINTEGRATING 4 MG TAB PO PRN (13:00)
[2016-04-25 13:47] LABS: BICARBONATE 23 mEq/L (22-26); MEASURED OXYGEN SATURATION 81 % (92-95); PCO2 51 mmHg (34-38); PO2 51 mmHg (65-75); TCO2 24 mEq/L (23-27)
[2016-04-25 13:48] LABS: CPAP YES; PATIENT RATE 14
[2016-04-25 13:49] LABS: O2 CONCENTRATIION 80 % (0-100); P/F RATIO 64 RATIO
[2016-04-25] MEDS ORDERED: PROPOFOL/EMULSION 1,000 MG/100 ML BOTTLE IV ONE (13:51)
[2016-04-25] MEDS ORDERED: KETOROLAC 30 MG/1 ML SDV IVP ONE (14:00)
--- NOTE | 2016-04-25 14:03 | POSTOPPROG ---
Post Op Note Date of Operation: 04/25/16 Surgeon: Butch Strong Post Graduate Intern: Queenie Claudio Anesthesiologist: Demetris Anesthesia: GET(General Endotracheal) Procedure: reoperation MV repair, TVA, CMIV Inf/Abcess present in the surg proc area at time of surgery?: No EBL: 100-500 Drains: Other (3 blakes)
--- NOTE | 2016-04-25 14:29 | DX ---
Portable Chest, 14:14 History: Post open heart surgery Comparison: April 08, 2016 Findings: Chronic or recurrent right lower lung infiltrate may represent pulmonary edema. Other previ ously diffuse interstitial pulmonary edema is improved. No pneumothorax. ET tube present with tip in the mid trachea. Right external jugular [place]-Birgit catheter present with tip in the central main pulmo nary artery. A mediastinal drain and 2 right chest tubes are present. A right external jugular venous catheter is present with tip in the superior vena cava. There is left lower lobe consolidation consi stent with atelectasis. EKG leads overlie the chest. Impression: First postop exam.
[2016-04-25] MEDS: ALBUMIN 5% 250 ML IV PRN ×2 (14:31→15:06)
[2016-04-25] MEDS: ceFAZolin 2 GM/DEXTROSE 100 ML IV SCH ×2 (14:43→22:16)
[2016-04-25] MEDS ORDERED: KETOROLAC 15 MG/1 ML SDV IVP SCH (15:00)
[2016-04-25] MEDS: fentaNYL 100 MCG/2 ML INJ IVP PRN ×3 (15:06→23:52)
--- NOTE | 2016-04-25 15:11 | GOP ---
[f rep st] OPERATIVE REPORT DATE OF OPERATION: 04/25/2016 SURGEON: Butch Strong DO CAREER SERVICES ASSISTANT: Buddy Claudio and Laura Barnard. PREOPERATIVE DIAGNOSIS: 1. Severe mitral insufficiency with ANA M with apparent dehiscence of previous mitral ring status post previous repair. 2. Tricuspid insufficiency with right ventricular and tricuspid anulus dilatation. 3. Atrial arrhythmias with suggestion of atrial tachycardia with class 4 congestive heart failure pr esentation. POSTOPERATIVE DIAGNOSIS: 1. Severe mitral insufficiency with ANA M with apparent dehiscence of previous mitral ring status post previous repair. 2. Tricuspid insufficiency with right ventricular and tricuspid anulus dilatation. 3. Atrial arrhythmias with suggestion of atrial tachycardia with class 4 congestive heart failure pr esentation. PROCEDURE PERFORMED: 1. Reoperation, re-repair of the mitral valve with quadrangular resection and reduction of the anulu s size with compression sutures and a #34 physio annuloplasty ring with closure of P1, P2 cleft. 2. Tricuspid valve annuloplasty with a #34 annuloplasty ring. 3. Hassan Maze for both left and right-sided lesions performed. FINDINGS: Patient presented with class 4 heart failure with known regurgitant mitral valve disease a fter having a prior mitral valve repair 3 years ago. He had known ANA M with severe regurgitation and decreased left ventricular function, severe pulmonary hypertension and chronic congestive heart failu re. He was referred for repeat surgery. He was consented for re-repair of the mitral valve, tricusp id valve repair and Hassan Maze 4. DESCRIPTION OF PROCEDURE: He was brought to the operating room, intubated, monitoring lines were liyah daniel by Anesthesia. He was prepped and draped in sterile classical manner. He had a previous right m ini thoracotomy and right common femoral artery cannulation. I then performed a sternotomy without d ifficulty. There were marked adhesions on the right side. We dissected the right atrium away from t he pericardium which was absent over the right atrium and avoided the phrenic nerve, visualizing it d irectly. He was then heparinized and cannulated with bicaval cannulas in the standard fashion. Init ially, right and left side testing for ganglionic plexi was performed with positive to co mpletion. We then initiated cardiopulmonary bypass, arrested the heart and were able to encircle the left pulmonary veins with dissection, and ablate the left pulmonary antrum with 7 or 8 lesion sets p erformed without difficulty. We then cryo ablated at the terminus of the right and circumflex vessel s over the coronary sinus for 3 minutes. I then exposed the mitral valve through the right superior pulmonary vein through the previous incision, and initially performed the roof and floor lesions with a radiofrequency ablation with multiple applications, crossing the previous antrum lesion on the lef t. I then exposed the atrial appendage which was still patent despite being closed surgically, being distended and full of blood. This was resected and I found a 4 mm continuation into the left atrium . I then placed a radiofrequency clamp across that and performed the left superior pulmonary vein to atrial appendage lesion with multiple harris. This was oversewn with 4-0 Prolene. I then proceeded with performing the cryo lesion across the isthmus of the mitral valve in line with the previous daksha nary sinus cryo lesion. I then removed the previous tricuspid ring, inspected the valve. It was a m yxomatous valve. There was no apparent previous resection that I could identify on the leaflets. Th e entire segment of P2 was ruptured. P1 and P3 were normal size. Anterior leaflet was markedly enla rged. I then resected most of P2 and placed 2 pledgeted mattress Tycron sutures in the anulus to red uce the length of the anulus, bringing the leaflet edges together. These were approximated with inte rrupted 4-0 Prolene suture. Distending the ventricle revealed no regurgitation except that a cleft b etween P1 and P2. This was closed with additional 5 0 [place]. At the completion, distention of th e ventricle revealed no regurgitation. He was sized for a 34 ring which was placed with well-seated annular sutures in the fibrous skeleton and anulus with excellent coaptation. The left atrium was cl osed in standard fashion. Rewarming was begun while the caval tapes were secured and the right atriu m was opened longitudinally. We then performed the right-sided Maze procedure with a free wall, supe rior and inferior caval lesions utilizing radiofrequency with multiple harris. I then used cryo at ap proximately 2 o'clock from the edge of the vertical atriotomy for 3 minutes in order to complete that lesion. We then placed sutures around the anulus of the tricuspid valve which was markedly dilated. It actually measured to a 40, although the largest ring we had was a 36 which was placed without di fficulty with no evidence of regurgitation at the completion. A tricuspid ring was sutured in place with complete coaptation of the leaflets and no regurgitation upon distention. The right atrium was closed without difficulty with a continuous running 4-0 Prolene suture. Tricuspid and right-sided le sions were done with the cross-clamp off, in Trendelenburg with aspiration of the LV apex and ascendi ng aortic vent while we were repairing the tricuspid valve. He was then weaned from bypass without d ifficulty. Echo revealed excellent coaptation surfaces on the mitral valve of approximately 1.5 cm. Anterior and posterior leaflet coaptation without any regurgitation and no ANA M. Heparin was reverse d with protamine. The cannula was removed and oversewn. Four pacing wires were placed. Two mediast inal and 1 right pleural tubes were placed. The thymic fat and pericardium were closed over the ante rior surface of the heart. The sternum was closed in standard fashion. He was returned to ICU in st able condition. /[id number]/MODL
[2016-04-25 15:48] LABS: BASE EXCESS -3.3 mEq/L (-2.5-2.5); BICARBONATE 22 mEq/L (22-26); MEASURED OXYGEN SATURATION 89 % (92-95); PCO2 44 mmHg (34-38); PO2 64 mmHg (65-75); TCO2 24 mEq/L (23-27)
[2016-04-25 15:51] LABS: CPAP YES
[2016-04-25] MEDS: KETOROLAC 15 MG/1 ML SDV IVP SCH ×2 (16:20→23:48)
[2016-04-25] MEDS ORDERED: NOREPINEPHRINE BITARTRATE 16 MG in D5W 250 ML IV SCH (16:30)
[2016-04-25] MEDS ORDERED: NOREPINEPHRINE BITARTRATE 4 MG in D5W 500 ML IV SCH (16:30)
[2016-04-25] MEDS ORDERED: ALBUMIN 5% 500 ML IV ONE (17:00)
[2016-04-25] MEDS: MUPIROCIN 2% 22 GM OINT NS SCH ×2 (17:01→20:47)
[2016-04-25 17:44] LABS: BASE EXCESS -2.3 mEq/L (-2.5-2.5); BICARBONATE 23 mEq/L (22-26); MEASURED OXYGEN SATURATION 95 % (92-95); PCO2 41 mmHg (34-38); PO2 76 mmHg (65-75); TCO2 24 mEq/L (23-27)
[2016-04-25 18:23] LABS: % IMMATURE GRANULYOCYTES 0.6 % (0.0-1.1); ADD DIFF? NO; ADD MORPH? NO; ADD SCAN? NO; ATYPICAL LYMPHOCYTE FLAG 0 (0-99); FRAGMENT RBC FLAG 0 (0-99); HEMATOCRIT 27.8 % (40.0-51.0); HEMOGLOBIN 9.6 g/dL (13.7-17.5); LEFT SHIFT FLG 20 (0-99); LIPEMIA HEMOLYSIS FLAG 90 (0-99); MEAN CELL HEMOGLOBIN 33.1 pg (27.9-34.1); MEAN CELL HEMOGLOBIN CONCENTR. 34.5 g/dL (32.4-36.7); MEAN CELL VOLUME 95.9 fL (81.5-99.8); MEAN PLATELET VOLUME 10.6 fL (8.7-11.7); PLATELET CLUMPS FLAG 0 (0-99); PLATELET COUNT 68 10^3/uL (150-400)
[2016-04-25] MEDS: FAMOTIDINE 20 MG/NACL 50 ML IV SCH (20:30)
[2016-04-25] MEDS: CYANO/VITAMIN B12 1000 MCG TAB PO SCH (20:47)
[2016-04-25] MEDS: CHLORHEXIDINE GLUCONATE 15 ML UDL PO SCH (20:47)
[2016-04-25] MEDS: HYDROCODONE/APAP 5/325 TAB PO PRN (20:47)
[2016-04-26 00:18] LABS: HEMATOCRIT 29.3 % (40.0-51.0); HEMOGLOBIN 9.7 g/dL (13.7-17.5); MEAN CELL HEMOGLOBIN 31.3 pg (27.9-34.1); MEAN CELL HEMOGLOBIN CONCENTR. 33.1 g/dL (32.4-36.7); MEAN CELL VOLUME 94.5 fL (81.5-99.8); RED BLOOD CELL COUNT 3.1 10^6/uL (4.40-6.38); RED CELL DISTRIBUTION WIDTH 13.2 % (11.5-15.2)
[2016-04-26] MEDS: HYDROCODONE/APAP 5/325 TAB PO PRN ×6 (00:48→23:07)
[2016-04-26] MEDS: fentaNYL 100 MCG/2 ML INJ IVP PRN (04:15)
[2016-04-26] MEDS: KETOROLAC 15 MG/1 ML SDV IVP SCH ×3 (05:01→18:58)
[2016-04-26] MEDS: ceFAZolin 2 GM/DEXTROSE 100 ML IV SCH ×3 (05:01→21:21)
[2016-04-26 05:34] LABS: % IMMATURE GRANULYOCYTES 0.7 % (0.0-1.1); ADD DIFF? NO; ADD MORPH? NO; ADD SCAN? NO; ATYPICAL LYMPHOCYTE FLAG 0 (0-99); FRAGMENT RBC FLAG 0 (0-99); HEMATOCRIT 29.4 % (40.0-51.0); HEMOGLOBIN 9.6 g/dL (13.7-17.5); LEFT SHIFT FLG 30 (0-99); LIPEMIA HEMOLYSIS FLAG 80 (0-99); MEAN CELL HEMOGLOBIN 31.6 pg (27.9-34.1); MEAN CELL HEMOGLOBIN CONCENTR. 32.7 g/dL (32.4-36.7); MEAN CELL VOLUME 96.7 fL (81.5-99.8); PLATELET CLUMPS FLAG 0 (0-99); PLATELET COUNT 85 10^3/uL (150-400); RED BLOOD CELL COUNT 3.04 10^6/uL (4.40-6.38); RED CELL DISTRIBUTION WIDTH 13.3 % (11.5-15.2)
[2016-04-26 05:45] LABS: INR 1.39 (0.83-1.16)
[2016-04-26 05:52] LABS: ANION GAP 7 mEq/L (8-16); CALCIUM 8.2 mg/dL (8.5-10.4); CARBON DIOXIDE 25 mEq/l (22-31); CHLORIDE 109 mEq/L (97-110); CREATININE 0.9 mg/dL (0.7-1.3); GLOMERULAR FILTRATION RATE > 60; GLUCOSE 94 mg/dL (70-100); POTASSIUM 5.1 mEq/L (3.5-5.2); SODIUM 141 mEq/L (134-144)
[2016-04-26] MEDS: HEPARIN 5,000 UNIT/0.5 ML SYR SC SCH ×3 (06:21→20:50)
[2016-04-26] MEDS: FAMOTIDINE 20 MG/NACL 50 ML IV SCH (06:28)
--- NOTE | 2016-04-26 07:49 | DX ---
Portable Chest 610 a.m. History: Post open heart surgery Comparison: April 25 Findings: The patient has been extubated and there is increased right basilar postextubation atelectasis. Insp iratory phase is less. There is persistent left basilar atelectasis. The heart remains enlarged. The pulmonary vascularity is less plethoric. 2 right chest tubes remain in place without pneumothorax. A right jugular venous [place]-Birgit catheters present with tip in the central aspect of the main pulmonary artery. A tandem right external jugular venous catheter remains in place. Median sternotomy wires an d 2 valve replacements remain overlying the enlarged heart. Impression: Postextubation atelectasis.
--- NOTE | 2016-04-26 08:30 | SOAPPROG ---
SOAP Progress Note Assessment/Plan: POD #1 Redo MVR with #34 Physio annuloplasty , TVR with #34 Physio annuloplasty , Hassan-Maze IV, resection ARYA with closure Severe MR with h/o MICS MV repair s/p re-repair with #34 Physio annuloplasty - [place]/RAL/FC out - CT to remain on suction - ?lung injury during lysing adhesions - Coumadin goal 2-3 x 3 months once rhythm issues stabilized - ?PPM insertion - Transfer to PCU Severe TR s/p TVR with #34 Physio annuloplasty - Mgmt as per Redo MVR Junctional intrinsic rhythm - Continue AP at 80 - No BB - Possible PPM if not resolution - will hold off on PO thromboprophylaxis Stage IV CHF, systolic dysfunction with dilated cardiomyopathy, mild fluid overload - Lasix 10 mg IVP this AM - CELE/BB when appropriate Acute blood loss anemia - Serosanguineous drainage from CTs - Monitor H/H 04/26/16 09:48 Subjective: Pain better controlled with Toradol. Denies SOB. Good appetite. No bloating. Objective: Vital Signs Temp Pulse Resp BP Pulse Ox 36.9 C 80 18 92/58 L 100 04/26/16 08:00 04/26/16 08:00 04/26/16 08:00 04/26/16 08:00 04/26/16 08:00 Laboratory Results 04/26/16 05:05 04/26/16 05:05 04/25/16 04/26/16 04/27/16 05:59 05:59 05:59 Intake Total 3275.5 Output Total 2755 Balance 520.5 PT 17.0 SEC (12.0-15.0) H 04/26/16 05:05 INR 1.39 (0.83-1.16) H 04/26/16 05:05 Physical Exam - Physical Exam General Appearance: WD/WN, alert, no apparent distress EENT: No scleral icterus (R), No scleral icterus (L) Neck: normal inspection Respiratory: chest non-tender, lungs clear, normal breath sounds, No accessory muscle use, No retractions, No splinting Cardiac/Chest: other (JR ), No systolic murmur Abdomen: non-tender, soft, No distended Skin: normal color, warm/dry Extremities: pedal edema (+1 B/L LE) Neuro/Psych: no motor/sensory deficits, alert, normal mood/affect, oriented x 3 ICD10 Worksheet Patient Problems: Problems Problem Status Diagnosed Acute blood loss anemia Acute S/P ablation of atrial fibrillation Acute 04/25/16 S/P mitral valve repair Acute 04/25/16 S/P tricuspid valve repair Acute 04/25/16 Myxomatous mitral valve regurgitation Chronic Tricuspid regurgitation Chronic
[2016-04-26] MEDS: ASPIRIN 81 MG CHEWABLE TAB PO SCH (08:45)
[2016-04-26] MEDS: CHLORHEXIDINE GLUCONATE 15 ML UDL PO SCH (08:46)
[2016-04-26] MEDS: MUPIROCIN 2% 22 GM OINT NS SCH ×2 (08:47→20:42)
[2016-04-26] MEDS ORDERED: traMADol 50 MG TAB PO PRN (09:22)
[2016-04-26] MEDS ORDERED: FUROSEMIDE 20 MG/2 ML VIAL IVP ONE (09:35)
[2016-04-26] MEDS ORDERED: ZOLPIDEM TARTRATE 5 MG TAB PO PRN (09:49)
--- NOTE | 2016-04-26 13:24 | GCON ---
[f rep st] CONSULTATION DATE OF CONSULTATION: 04/25/2016 REFERRING PHYSICIAN: Butch Strong DO Pulmonary/Critical Care Consultation. REASON FOR REFERRAL: Evaluation and management of respiratory failure and anemia. HISTORY: The patient is a 61-year-old male who had a mitral valve repair in September [address] Gerber leyva. He had done well until about 3 weeks ago when he had the onset of intermittent shortness of isabella ath that started to get worse. This particularly bothered him when he would lie flat. An echocardio gram demonstrated moderate to severe mitral regurgitation, so he was referred for repeat mitral valve surgery. In surgery, he was found to have a new rupture of chordae, so his valve was re-repaired, a nd the annuloplasty ring was replaced. He also had a tricuspid valve repair and a Hassan maze procedure . His intraoperative course today was unremarkable. Postoperatively, he was extubated but had to be reintubated due to minimal respiratory effort. He was then extubated again but then had to be reint ubated, again because he had inadequate respiratory effort. At the time I am seeing him, he is minim ally responsive and remains intubated and on a mechanical ventilator. PAST MEDICAL HISTORY: 1. Status post mitral valve repair. 2. BPH. MEDICATIONS: At the time of admission include zolpidem, vitamin B12, aspirin, potassium, and furosem murray. ALLERGIES: Penicillin. SOCIAL HISTORY: The patient does not smoke or drink. He lives in [place] with family. FAMILY HISTORY: Unremarkable. REVIEW OF SYSTEMS: Comprehensive 10-point review of systems is done and adds nothing to the History of Present Illness. PHYSICAL EXAMINATION: GENERAL: The patient is intubated and sedated. He is not responding to comma nds. VITAL SIGNS: Blood pressure is 89/57 with a heart rate of 87. He is afebrile with a temperatu re of 35.8. His oxygen saturations are 96% on 60% oxygen. His CVP is 10 with a cardiac index of 2.7 . HEENT: Normocephalic and atraumatic. No icterus. He had an endotracheal tube in place. NECK: No adenopathy. Trachea is midline. CHEST: Clear to auscultation. CARDIAC: Regular rate and rhyth m without murmur. ABDOMEN: Soft, nontender. Bowel sounds are present. EXTREMITIES: No clubbing, cyanosis, or edema. LABORATORY: Chemistry group shows a sodium of 147 with a chloride of 111. Glucose is 119. Hemoglob in is 10.2, down from 15.1 a few weeks earlier. INR is 1.4. Arterial blood gas shows a pH of 7.26 w ith a pO2 of 51, a CO2 of 51, a bicarbonate of 24, and a respiratory rate 14 with 80% oxygen. A ches t x-ray shows some basilar lung infiltrates. ASSESSMENT: 1. Status post mitral and tricuspid valve repairs. The patient has done well hemodynamically since surgery. 2. Acute hypercapnic and hypoxemic respiratory failure. This may be due to delayed metabolism of an esthetics, with reduced respiratory effort. The patient is starting to move a little bit more now an d may be ready to extubate soon. 3. Anemia. The patient's hemoglobin has fallen significantly since his prior admission. This is li breann due to intraoperative blood loss and volume expansion. There are no signs of active bleeding. 4. Hyperglycemia. This is mild. PLAN: 1. Wean and extubate once he is more awake and alert and able to breathe spontaneously. 2. Follow hemoglobin. 3. Follow blood sugars closely, adding insulin this as necessary. 4. The patient will be transfused if his hemoglobin falls much further. /[id number]/MODL
[2016-04-26 15:39] LABS: POTASSIUM 4.9 mEq/L (3.5-5.2)
[2016-04-26] MEDS: CYANO/VITAMIN B12 1000 MCG TAB PO SCH (20:41)
[2016-04-26] MEDS: SENNOSIDES/DOCUSATE SODIUM TAB PO SCH (20:42)
[2016-04-26] MEDS: CHOLECALCIFEROL VIT D3 1,000 UNITS TAB PO SCH (20:49)
[2016-04-26] MEDS ORDERED: NON-FORMULARY NEW DRUG (Cyanocobalamin (Vitamin B-12) [B-12] 1,000 MCG) PO SCH (21:00)
[2016-04-27] MEDS: KETOROLAC 15 MG/1 ML SDV IVP SCH ×5 (00:17→23:41)
[2016-04-27] MEDS: HYDROCODONE/APAP 5/325 TAB PO PRN ×5 (03:20→22:07)
[2016-04-27 05:43] LABS: % IMMATURE GRANULYOCYTES 0.7 % (0.0-1.1); ABSOLUTE IMMATURE GRANULOCYTES 0.09 10^3/uL (0.00-0.10); ADD DIFF? NO; ADD MORPH? NO; ADD SCAN? NO; ATYPICAL LYMPHOCYTE FLAG 0 (0-99); FRAGMENT RBC FLAG 0 (0-99); HEMOGLOBIN 8.8 g/dL (13.7-17.5); LEFT SHIFT FLG 0 (0-99); LIPEMIA HEMOLYSIS FLAG 80 (0-99); MEAN CELL HEMOGLOBIN 32.1 pg (27.9-34.1); MEAN CELL HEMOGLOBIN CONCENTR. 32.6 g/dL (32.4-36.7); MEAN CELL VOLUME 98.5 fL (81.5-99.8); MEAN PLATELET VOLUME 12.2 fL (8.7-11.7); PLATELET CLUMPS FLAG 0 (0-99); PLATELET COUNT 61 10^3/uL (150-400); RED BLOOD CELL COUNT 2.74 10^6/uL (4.40-6.38)
[2016-04-27 05:56] LABS: INR 1.19 (0.83-1.16); PROTIME(PATIENT) 15.1 SEC (12.0-15.0)
[2016-04-27 06:02] LABS: ANION GAP 6 mEq/L (8-16); CALCIUM 8.3 mg/dL (8.5-10.4); CARBON DIOXIDE 26 mEq/l (22-31); CHLORIDE 103 mEq/L (97-110); GLOMERULAR FILTRATION RATE > 60; GLUCOSE 105 mg/dL (70-100); POTASSIUM 5.1 mEq/L (3.5-5.2); SODIUM 135 mEq/L (134-144)
[2016-04-27] MEDS: HEPARIN 5,000 UNIT/0.5 ML SYR SC SCH (06:59)
--- NOTE | 2016-04-27 08:51 | DX ---
Portable AP Upright Chest April 27, 2016 at 6:17 a.m. Clinical History: 61-year-old male for follow-up after open heart surgery, currently in the ICU. Comparison Study: Chest, dated April 26, 2016, at 6:10 a.m. Findings: The numerous interventional and monitoring devices are similarly-positioned with the except ion that a [place]-Birgit catheter has been removed. The patient is slightly rotated to the left. The card iac silhouette remains enlarged. There are bibasilar areas of pleuroparenchymal consolidation with el evation of the right hemidiaphragm. There is some peribronchial thickening and mild pulmonary vascula r redistribution. There is no evidence of a pneumothorax. Impression: Postoperative changes following a recent open heart surgery with interim removal of a [place]-Birgit catheter since yesterday's study. Otherwise, there has been no substantial interval change in the degree of bibasilar pleuroparenchymal consolidation, cardiomegaly, and mild pulmonary venous fallon estion.
--- NOTE | 2016-04-27 08:51 | SOAPPROG ---
SOAP Progress Note Assessment/Plan: POD #2 Redo MVR with #34 Physio annuloplasty, TVR with #34 Physio annuloplasty , Hassan-Maze IV, resection ARYA with closure Severe MR with h/o MICS MV repair s/p re-repair with #34 Physio annuloplasty - CTs to bulb suction - Coumadin goal 2-3 x 3 months once rhythm issues stabilized - ?PPM insertion - BB/CELE when appropriate Severe TR s/p TVR with #34 Physio annuloplasty - Mgmt as per Redo MVR Junctional intrinsic rhythm 30s - Continue AP at 80 - No BB - Possible PPM if not resolution - will hold off on PO thromboprophylaxis Stage IV CHF, systolic dysfunction with dilated cardiomyopathy - Lasix prn - CELE/BB when appropriate Acute blood loss anemia with thrombocytopenia - Serosanguineous drainage from CTs - Monitor CBC - Precautionary HIT sent Subjective: c/o chest pain from chest tube sites. No SOB. Good appetite. Had trouble sleeping due to pain. Objective: Vital Signs Temp Pulse Resp BP Pulse Ox 36.4 C 80 19 89/59 L 92 04/27/16 08:00 04/27/16 08:00 04/27/16 08:00 04/27/16 08:00 04/27/16 08:00 Laboratory Results 04/27/16 05:25 04/27/16 05:25 04/26/16 04/27/16 04/28/16 05:59 05:59 05:59 Intake Total 3275.5 1995 Output Total 2755 1115 Balance 520.5 880 PT 15.1 SEC (12.0-15.0) H 04/27/16 05:25 INR 1.19 (0.83-1.16) H 04/27/16 05:25 Physical Exam - Physical Exam General Appearance: WD/WN, alert, no apparent distress EENT: No scleral icterus (R), No scleral icterus (L) Neck: normal inspection Respiratory: lungs clear, No respiratory distress, No accessory muscle use Cardiac/Chest: other (JR) Abdomen: non-tender, soft, No distended Skin: normal color, warm/dry Extremities: No pedal edema, No swelling Neuro/Psych: no motor/sensory deficits, alert, normal mood/affect, oriented x 3 ICD10 Worksheet Patient Problems: Problems Problem Status Diagnosed Acute blood loss anemia Acute S/P ablation of atrial fibrillation Acute 04/25/16 S/P mitral valve repair Acute 04/25/16 S/P tricuspid valve repair Acute 04/25/16 Myxomatous mitral valve regurgitation Chronic Tricuspid regurgitation Chronic
[2016-04-27] MEDS: SENNOSIDES/DOCUSATE SODIUM TAB PO SCH ×2 (09:53→19:46)
[2016-04-27] MEDS: ASPIRIN 81 MG CHEWABLE TAB PO SCH (09:53)
[2016-04-27] MEDS: MUPIROCIN 2% 22 GM OINT NS SCH (09:53)
[2016-04-27] MEDS ORDERED: COLCHICINE 0.6 MG CAP/TAB PO SCH (11:00)
--- NOTE | 2016-04-27 14:16 | PDINTPN ---
Outbound Sales Advisor Progress Note Assessment/Plan: Assessment: S/P MV repair re-do, TV repair: Bradycardia: Currently paced, underlying rhythm is ventricular escape at 30 bpm. Anemia: H/H trending down. Hyperglycemia: resolved. Plan: Follow H/H. Continue with epicardial pacing for now. PPM if [place] rhythm doesn't improve. 04/27/16 14:02 Objective: Vital Signs Temp Pulse Resp BP Pulse Ox 36.6 C 96 17 91/64 L 100 04/27/16 12:00 04/27/16 12:00 04/27/16 12:00 04/27/16 12:00 04/27/16 12:00 Laboratory Results 04/27/16 05:25 04/27/16 05:25 04/26/16 04/27/16 04/28/16 05:59 05:59 05:59 Intake Total 3275.5 1995 Output Total 2755 1115 Balance 520.5 880 PT 15.1 SEC (12.0-15.0) H 04/27/16 05:25 INR 1.19 (0.83-1.16) H 04/27/16 05:25 ICD10 Worksheet Patient Problems: Problems Problem Status Diagnosed Acute blood loss anemia Acute S/P ablation of atrial fibrillation Acute 04/25/16 S/P mitral valve repair Acute 04/25/16 S/P tricuspid valve repair Acute 04/25/16 Myxomatous mitral valve regurgitation Chronic Tricuspid regurgitation Chronic
[2016-04-27] MEDS ORDERED: fentaNYL 25 MCG PATCH TD SCH (19:30)
[2016-04-27] MEDS: CHOLECALCIFEROL VIT D3 1,000 UNITS TAB PO SCH (19:45)
[2016-04-27] MEDS: CYANO/VITAMIN B12 1000 MCG TAB PO SCH (19:46)
[2016-04-28] MEDS: HYDROCODONE/APAP 5/325 TAB PO PRN ×3 (02:18→14:47)
[2016-04-28 04:45] LABS: HEMOGLOBIN A1C 4.8 % (4.0-6.0)
[2016-04-28 05:42] LABS: HEMATOCRIT 25.4 % (40.0-51.0); HEMOGLOBIN 8.4 g/dL (13.7-17.5); MEAN CELL HEMOGLOBIN 32.3 pg (27.9-34.1); MEAN CELL HEMOGLOBIN CONCENTR. 33.1 g/dL (32.4-36.7); MEAN CELL VOLUME 97.7 fL (81.5-99.8); RED BLOOD CELL COUNT 2.6 10^6/uL (4.40-6.38); RED CELL DISTRIBUTION WIDTH 12.8 % (11.5-15.2)
[2016-04-28 05:49] LABS: INR 1.1 (0.83-1.16); PROTIME(PATIENT) 14.1 SEC (12.0-15.0)
[2016-04-28 05:59] LABS: ANION GAP 5 mEq/L (8-16); CALCIUM 8.3 mg/dL (8.5-10.4); CARBON DIOXIDE 29 mEq/l (22-31); CHLORIDE 103 mEq/L (97-110); CREATININE 0.7 mg/dL (0.7-1.3); GLOMERULAR FILTRATION RATE > 60; GLUCOSE 89 mg/dL (70-100); SODIUM 137 mEq/L (134-144)
[2016-04-28] MEDS: KETOROLAC 15 MG/1 ML SDV IVP SCH ×3 (07:14→17:33)
--- NOTE | 2016-04-28 08:31 | SOAPPROG ---
SOAP Progress Note Assessment/Plan: POD #3 Redo MVR with #34 Physio annuloplasty, TVR with #34 Physio annuloplasty , Hassan-Maze IV, resection ARYA with closure Severe MR with h/o MICS MV repair s/p re-repair with #34 Physio annuloplasty - CTs to bulb suction - will likely remove one today - Coumadin goal 2-3 x 3 months once rhythm issues stabilized - ?PPM insertion - BB/CELE when appropriate - DVT prophylaxis with SCDs, heparin SQ on hold until platelets recover Severe TR s/p TVR with #34 Physio annuloplasty - Mgmt as per Redo MVR Junctional intrinsic rhythm 30s - Continue AP at 80 - No BB - Possible PPM if no resolution - will hold off on PO thromboprophylaxis Stage IV CHF, systolic dysfunction with dilated cardiomyopathy - Lasix prn - CELE/BB when appropriate Acute blood loss anemia with thrombocytopenia - Serosanguineous drainage from CTs - Monitor CBC - Precautionary HIT sent 04/28/16 09:34 Subjective: Still has pain on right side, made worse when leaning on chest tubes. Denies SOB. Legs feel swollen. Objective: Vital Signs Temp Pulse Resp BP Pulse Ox 36.6 C 80 7 L 84/54 L 96 04/28/16 05:29 04/28/16 05:29 04/28/16 05:29 04/28/16 05:29 04/28/16 05:29 Laboratory Results 04/28/16 05:15 04/28/16 05:15 04/27/16 04/28/16 04/29/16 05:59 05:59 05:59 Intake Total 1994 1019 Output Total 1115 915 75 Balance 880 105 -75 PT 14.1 SEC (12.0-15.0) 04/28/16 05:15 INR 1.10 (0.83-1.16) 04/28/16 05:15 Physical Exam - Physical Exam General Appearance: WD/WN, alert, no apparent distress EENT: No scleral icterus (R), No scleral icterus (L) Neck: normal inspection Respiratory: No respiratory distress Cardiac/Chest: other (JR) Abdomen: non-tender, soft, No distended Skin: normal color, warm/dry Extremities: pedal edema (+2 b/l LE), No calf tenderness, No swelling Neuro/Psych: no motor/sensory deficits, alert, normal mood/affect, oriented x 3 ICD10 Worksheet Patient Problems: Problems Problem Status Diagnosed Acute blood loss anemia Acute S/P ablation of atrial fibrillation Acute 04/25/16 S/P mitral valve repair Acute 04/25/16 S/P tricuspid valve repair Acute 04/25/16 Myxomatous mitral valve regurgitation Chronic Tricuspid regurgitation Chronic
[2016-04-28] MEDS: FUROSEMIDE 40 MG/4 ML VIAL IVP ONE ×2 (08:52→09:11)
[2016-04-28] MEDS: SENNOSIDES/DOCUSATE SODIUM TAB PO SCH (08:52)
[2016-04-28] MEDS: POTASSIUM CL 20 MEQ/15 ML UDCUP PO SCH (08:53)
[2016-04-28] MEDS: ASPIRIN 81 MG CHEWABLE TAB PO SCH (08:53)
--- NOTE | 2016-04-28 08:58 | DX ---
Portable Chest April 28, 2016 0606 hours History: Recent open heart surgery, follow up effusion. Comparison: Portable chest April 27, 2016. Findings: Right internal jugular central venous catheter tip is in the lower SVC in good position. Tw o right chest tubes are in stable position. Elevation of the right hemidiaphragm with right basilar c onsolidation and a small right effusion are stable. There is slightly improved consolidation in the l eft lung base. Mild enlargement of the cardiomediastinal silhouette and mild pulmonary vascular conge stion are stable. Artificial valves, epicardial pacing leads, and sternotomy wires are again noted. Impression: 1. Stable elevation of the right hemidiaphragm with atelectasis/effusion. 2. Slight improvement in left basilar consolidation.
[2016-04-28] MEDS ORDERED: FUROSEMIDE 100 MG/10 ML VIAL IVP SCH (09:00)
[2016-04-28] MEDS ORDERED: METOLAZONE 5 MG TAB PO ONE (12:25)
--- NOTE | 2016-04-28 15:34 | ECHO ---
[id number] + + [id number] : : [place] [id number] : : [phone] + + Adult Echocardiographic Report + ---------+ :Name: BENJA MITCHELL CStudy Date: 04/28/2016 01:21 PM : : Hospital Admission Number: [id number] Kassie davila: 241: :: 1955 Gender: Male Height: 69 i n : :Age: 61 yrs Race: WH,White Weight: 130 lb : :Reason For Study: Eval heart function : : BSA: 1.7 met ers2 : :History: Post op #34 MV ring/#34 TV ring : + ---------+ MMode/2D Measurements & Calculations IVSd: 0.91 cm LVIDd: 4.8 cm FS: 32.5 % Ao root diam: 4.7 cm LVPWd: 1.1 cm LVIDs: 3.2 cm EDV(Teich): 105.2 ml ESV(Teich): 41.2 ml EF(Teich): 60.8 % Normal Measurement Values: + + :LVIDd (3.5-5.7cm) IVSd (0.6-1.1cm) LVPWd (0.6-1.1cm) Aortic Root (2.0-3.7cm)Left Atrium (1.5-4.0cm): :LV Vol(d) (76-115ml) LV Vol(s) (29-48ml) Ejec Fraction (50-65%)PV Troy (0.6- 1.2m/s) TV Troy (0.4-1.0m/s) : :MV E Troy (0.8-1.0m/s)MV A Troy (0.3-1.0m/s)LVOT [place] (0.7-1.2m/s) Asc Ao Troy ( 0.9-1.8m/s) : + + Doppler Measurements & Calculations MV dec time: MV V2 mean: MV P1/2t max troy: Ao mean P.32 sec 78.9 cm/sec 145.9 cm/sec 3.1 mmHg MV mean PG: MV P1/2t: 111.1 msec Ao V2 mean: 2.9 mmHg MVA(P1/2t): 2.0 cm2 84.6 cm/sec MV V2 VTI: MV dec slope: Ao V2 VTI: 32.7 cm 19.7 cm 384.9 cm/sec2 TV V2 max: 75.6 cm/sec TV max P.3 mmHg TV V2 mean: 45.6 cm/sec TV mean P.95 mmHg TV V2 VTI: 19.0 cm Left Ventricle The left ventricle is normal in size. There is normal left ventricular wall thickness. Left ventricular systolic function is normal. EF estimate is 50- 55%. Septal motion is consistent with post-operative state. Right Ventricle The right ventricle is normal in size and function. Atria The left atrium is severely dilated. The right atrium is mildly dilated. The interatrial septum is intact with no evidence for an atrial septal defect. Mitral Valve An annuloplasty ring is noted in the mitral position. MV max PG is 9mmHG. MV mean PG is 3mmHG. Tricuspid Valve There is trace tricuspid regurgitation. An annuloplasty ring is noted in the tricuspid position. TV max PG is 2mmHG. TV mean PG is 1mmHG. Aortic Valve The aortic valve is trileaflet. The aortic valve opens well. There is no aortic stenosis. There is no aortic insufficiency. Pulmonic Valve The pulmonic valve is normal in structure and function. There is no pulmonic valvular regurgitation. Great Vessels Mild aortic root dilatation. Pericardium/Pleural There is no pericardial effusion. Conclusion A complete two-dimensional transthoracic echocardiogram was performed (2D, M-mode, Doppler and color flow Doppler). Pt had severe bradycardia at end of study (with external pacer on). Left ventricular systolic function is normal. EF estimate is 50-55%. Septal motion is consistent with post-operative state. The left atrium is severely dilated. The right atrium is mildly dilated. An annuloplasty ring is noted in the mitral position. MV max PG is 9mmHG. MV mean PG is 3mmHG. An annuloplasty ring is noted in the tricuspid position. TV max PG is 2mmHG. TV mean PG is 1mmHG. There is trace tricuspid regurgitation. Mild aortic root dilatation. Final Reading Physician: Mitch Phillip signed on 04/28/2016 03:33 PM Ordering Physician: Wade Jerome Performed By: Mel Jaimes RDCS
[2016-04-28 15:50] LABS: POTASSIUM 4.9 mEq/L (3.5-5.2)
[2016-04-28] MEDS: FUROSEMIDE 100 MG/10 ML VIAL IVP SCH (17:01)
[2016-04-28] MEDS ORDERED: SENNOSIDES/DOCUSATE SODIUM TAB PO PRN (21:00)
[2016-04-28] MEDS: CHOLECALCIFEROL VIT D3 1,000 UNITS TAB PO SCH (22:34)
[2016-04-28] MEDS: CYANO/VITAMIN B12 1000 MCG TAB PO SCH (22:34)
[2016-04-29] MEDS: KETOROLAC 15 MG/1 ML SDV IVP SCH ×3 (00:20→16:52)
[2016-04-29 04:57] LABS: HEMATOCRIT 27.8 % (40.0-51.0); HEMOGLOBIN 9.2 g/dL (13.7-17.5); MEAN CELL HEMOGLOBIN 31.8 pg (27.9-34.1); MEAN CELL HEMOGLOBIN CONCENTR. 33.1 g/dL (32.4-36.7); MEAN CELL VOLUME 96.2 fL (81.5-99.8); RED BLOOD CELL COUNT 2.89 10^6/uL (4.40-6.38); RED CELL DISTRIBUTION WIDTH 12.5 % (11.5-15.2)
[2016-04-29 05:03] LABS: INR 1.07 (0.83-1.16); PROTIME(PATIENT) 13.8 SEC (12.0-15.0)
[2016-04-29 05:05] LABS: POTASSIUM 4.3 mEq/L (3.5-5.2)
--- NOTE | 2016-04-29 08:44 | SOAPPROG ---
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 Graham Stage IV CHF, systolic dysfunction with dilated cardiomyopathy - Lasix daily - CELE/BB when appropriate Acute blood loss anemia with improving thrombocytopenia - Serosanguineous drainage from CTs - Monitor CBC - Precautionary HIT sent - pending 04/29/16 12:37 Subjective: Feels well. Pain better. Denies SOB. Legs still feel bloated. Objective: Vital Signs Temp Pulse Resp BP Pulse Ox 36.6 C 85 16 102/65 96 04/29/16 04:00 04/29/16 04:00 04/29/16 04:00 04/29/16 04:00 04/29/16 04:00 Laboratory Results 04/29/16 04:38 04/29/16 04:38 04/28/16 04/29/16 04/30/16 05:59 05:59 05:59 Intake Total 1020 550 Output Total 915 3405 Balance 105 -2855 PT 13.8 SEC (12.0-15.0) 04/29/16 04:38 INR 1.07 (0.83-1.16) 04/29/16 04:38 Physical Exam - Physical Exam General Appearance: WD/WN, alert, no apparent distress EENT: No scleral icterus (R), No scleral icterus (L) Neck: normal inspection Respiratory: lungs clear, normal breath sounds, No respiratory distress Cardiac/Chest: other (JR 30s ) Abdomen: non-tender, soft, No distended Skin: normal color, warm/dry Extremities: pedal edema (+2 B/L LE) Neuro/Psych: no motor/sensory deficits, alert, normal mood/affect, oriented x 3 ICD10 Worksheet Patient Problems: Problems Problem Status Diagnosed Acute blood loss anemia Acute S/P ablation of atrial fibrillation Acute 04/25/16 S/P mitral valve repair Acute 04/25/16 S/P tricuspid valve repair Acute 04/25/16 Myxomatous mitral valve regurgitation Chronic Tricuspid regurgitation Chronic
[2016-04-29] MEDS: ASPIRIN 81 MG CHEWABLE TAB PO SCH (08:47)
[2016-04-29] MEDS: FUROSEMIDE 100 MG/10 ML VIAL IVP SCH ×2 (08:47→16:05)
[2016-04-29] MEDS ORDERED: BACITRACIN IRRIGATION/NS 50,000 UNITS/1,000 ML BTL IRR ONE (08:51)
[2016-04-29] MEDS: POTASSIUM CL 20 MEQ/15 ML UDCUP PO SCH (08:52)
[2016-04-29] MEDS: POTASSIUM CL 20 MEQ TAB PO SCH (08:54)
--- NOTE | 2016-04-29 08:59 | PDCARCONS ---
Cardiology Consult Reason for Consult: Junctional rhythm requiring pacing post surgery Chief Complaint: Status post mitral and tricuspid valve repair, Maze procedure, junctional rhythm less than 30 beats per minute requiring pacing Requesting Physician: Dr. Butch Strong History of Present Illness: 61-year-old male status post recent mitral valve repair, this is 2nd mitral valve repair, tricuspid valve repair, Maze procedure. He has done well with surgery. He has temporary pacing wires in place. He is requiring pacing 100% of the time because of underlying junctional rhythm less than 30 beats per minute. Have been asked to discuss pacemaker implantation with him. History Information - Allergies/Home Medication List Allergies/Adverse Reactions: Penicillins Allergy (Unknown, Verified 04/24/16 16:08) Other-Enter Comments Home Medications: Zolpidem Tartrate [Ambien 5MG (*)] 5 mg PO HS PRN 10/01/12 [Last Taken 04/18/16] Aspirin EC [Aspirin EC 81 mg (*)] 81 mg PO HS 04/06/16 [Last Taken 04/24/16] Cholecalciferol Vit D3 [Vitamin D3 (*)] 5,000 units PO HS 04/06/16 [Last Taken 04/24/16] Cyanocobalamin (Vitamin B-12) [B-12] 1,000 mcg PO HS 04/06/16 [Last Taken ] Furosemide [Lasix 20 MG (*)] 20 mg PO DAILY@16 PRN 04/24/16 [Last Taken 04/24/16 ] Potassium Cl [Klor-Con 20 meq (*)] 20 meq PO DAILY@16 PRN 04/24/16 [Last Taken 04/24/16] - Social History Smoking Status: Never smoked Physical Exam Temp Pulse Resp BP Pulse Ox 36.6 C 85 16 102/65 96 04/29/16 04:00 04/29/16 04:00 04/29/16 04:00 04/29/16 04:00 04/29/16 04:00 O2 (L/minute) 2 FIO2 (%) 40 Constitutional: no apparent distress Eyes: PERRL, EOMI Ears, Nose, Mouth, Throat: moist mucous membranes, hearing normal Cardiovascular: regular rate and rhythym, no murmur, rub, or gallop Respiratory: no respiratory distress Gastrointestinal: normoactive bowel sounds, soft, non-tender abdomen Skin: warm, normal color Neurologic: AAOx3 Psychiatric: interacting appropriately, not anxious (2+ lower extremity edema) Lab and Imaging 04/29/16 04:38 04/29/16 04:38 WBC 7.22 10^3/uL (3.80-9.50) 04/29/16 04:38 RBC 2.89 10^6/uL (4.40-6.38) L 04/29/16 04:38 Hgb 9.2 g/dL (13.7-17.5) L 04/29/16 04:38 POC Hgb 9.2 gm/dL (14.5-17.3) L 04/26/16 02:02 Hct 27.8 % (40.0-51.0) L 04/29/16 04:38 POC Hct 27 % (42.8-50.6) L 04/26/16 02:02 MCV 96.2 fL (81.5-99.8) 04/29/16 04:38 MCH 31.8 pg (27.9-34.1) 04/29/16 04:38 MCHC 33.1 g/dL (32.4-36.7) 04/29/16 04:38 RDW 12.5 % (11.5-15.2) 04/29/16 04:38 Plt Count 81 10^3/uL (150-400) L 04/29/16 04:38 MPV 12.2 fL (8.7-11.7) H 04/27/16 05:25 Neut % (Auto) 78.8 % (39.3-74.2) H 04/27/16 05:25 Lymph % (Auto) 9.3 % (15.0-45.0) L 04/27/16 05:25 [place] % (Auto) 9.9 % (4.5-13.0) 04/27/16 05:25 Eos % (Auto) 1.1 % (0.6-7.6) 04/27/16 05:25 Baso % (Auto) 0.2 % (0.3-1.7) L 04/27/16 05:25 Nucleat RBC Rel Count 0.0 % (0.0-0.2) 04/27/16 05:25 Absolute Neuts (auto) 9.97 10^3/uL (1.70-6.50) H 04/27/16 05:25 Absolute Lymphs (auto) 1.17 10^3/uL (1.00-3.00) 04/27/16 05:25 Absolute Monos (auto) 1.25 10^3/uL (0.30-0.80) H 04/27/16 05:25 Absolute Eos (auto) 0.14 10^3/uL (0.03-0.40) 04/27/16 05:25 Absolute Basos (auto) 0.02 10^3/uL (0.02-0.10) 04/27/16 05:25 Absolute Nucleated RBC 0.00 10^3/uL (0-0.01) 04/27/16 05:25 Immature Gran % 0.7 % (0.0-1.1) 04/27/16 05:25 Immature Gran # 0.09 10^3/uL (0.00-0.10) 04/27/16 05:25 PT 13.8 SEC (12.0-15.0) 04/29/16 04:38 INR 1.07 (0.83-1.16) 04/29/16 04:38 Puncture Site ARTERIAL LINE 04/25/16 17:35 Patient Temperature 36.7 DEGREES 04/25/16 17:35 pCO2 41 mmHg (34-38) H 04/25/16 17:35 pO2 76 mmHg (65-75) H 04/25/16 17:35 Total CO2 24 mEq/L (23-27) 04/25/16 17:35 ABG pH 7.36 (7.35-7.45) 04/25/16 17:35 ABG PO2/FiO2 Ratio 64 RATIO 04/25/16 13:37 ABG O2 Saturation 95 % (92-95) 04/25/16 17:35 ABG Base Excess -2.3 mEq/L (-2.5-2.5) 04/25/16 17:35 Total O2 Concentration 3.0 LITERS 04/25/16 17:35 O2 Concentration % 80 % (0-100) 04/25/16 13:37 Actual Respiration Rate 14 04/25/16 13:37 PEEP 5 04/25/16 13:37 CPAP YES 04/25/16 15:40 POC Sodium 143 mEq/L (134-144) 04/26/16 02:02 Sodium 137 mEq/L (134-144) 04/28/16 05:15 POC Potassium 4.7 mEq/L (3.3-5.0) 04/26/16 02:02 Potassium 4.3 mEq/L (3.5-5.2) 04/29/16 04:38 POC Chloride 106 mEq/L (96-108) 04/26/16 02:02 Chloride 103 mEq/L (97-110) 04/28/16 05:15 Carbon Dioxide 29 mEq/l (22-31) 04/28/16 05:15 Bicarbonate 23 mEq/L (22-26) 04/25/16 17:35 Anion Gap 5 mEq/L (8-16) 04/28/16 05:15 POC BUN 15 mg/dL (7-23) 04/26/16 02:02 BUN 24 mg/dL (7-23) H 04/28/16 05:15 Creatinine 0.7 mg/dL (0.7-1.3) 04/28/16 05:15 POC Creatinine 0.9 mg/dL (0.8-1.5) 04/26/16 02:02 Estimated GFR > 60 04/28/16 05:15 Glucose 89 mg/dL (70-100) 04/28/16 05:15 POC Glucose 114 mg/dL (70-100) H 04/26/16 07:04 Hemoglobin A1c 4.8 % (4.0-6.0) D 04/27/16 00:03 Estim Average Glucose 91 mg/dL (68-126) 04/27/16 00:03 Calcium 8.3 mg/dL (8.5-10.4) L 04/28/16 05:15 Patient ABO/Rh O POSITIVE 04/25/16 06:55 Antibody Screen NEGATIVE 04/25/16 06:55 Crossmatch IS Only See Detail 04/25/16 06:55 Visualized and Interpreted imaging results: Yes Visualized and Interpreted EKG results: Yes EKG additional interpertation: Atrial-ventricular paced rhythm. Underlying rhythm is junctional rhythm at rates less than 30 beats per minute. A/P Assessment: Conduction system disease Plan: 61-year-old male status post mitral and tricuspid valve repair, Maze procedure. He is postoperative day 4, remains pacemaker dependent with underlying junctional rhythm at rates less than 30 beats per minute. He meets criteria for permanent pacemaker implantation. Procedure was reviewed with him. Risks including , vascular access complications, pneumothorax, deep venous thrombosis, pulmonary embolism, lead dislodgement, infection , cardiac perforation etc were discussed with him with the nurse present. His case was also discussed with Dr. Butch Strong. Procedure will be scheduled.
[2016-04-29] MEDS ORDERED: NS 1,000 ML IV SCH (09:00)
[2016-04-29] MEDS ORDERED: METOLAZONE 5 MG TAB PO ONE (10:00)
--- NOTE | 2016-04-29 10:24 | DX ---
Portable Chest, Single View 9:51 a.m. Indication: Follow-up right effusion. Comparison: Portable chest dated 04/28/2016. Findings: The two right chest tubes are unchanged in position. Right basilar consolidation and presum ed subpulmonic effusion are unchanged. The mediastinal drain, right IJ central venous line, midline w ires, and prosthetic heart valve are unchanged. No pneumothorax or pulmonary edema. The left lung is clear. Moderate cardiomegaly is unchanged. Impression: 1. No pneumothorax. 2. Support devices remain in good position. 3. Right basilar consolidation and presumed subpulmonic right pleural effusion are unchanged. 3. Cardiomegaly is unchanged. No pulmonary edema. Comment: The results were called to the patient's ICU nurse shortly after study completion.
[2016-04-29] MEDS ORDERED: VANCOMYCIN HCL/NORMAL SALINE 250 ML IV ONE (11:31)
[2016-04-29] MEDS ORDERED: fentaNYL 100 MCG/2 ML INJ ONE (12:29)
[2016-04-29] MEDS ORDERED: LIDOCAINE 1% 30 ML SDV ONE (12:29)
[2016-04-29] MEDS ORDERED: MIDAZOLAM 2 MG/2 ML VIAL ONE (12:29)
[2016-04-29] MEDS ORDERED: IOPAMIDOL (ISOVUE-300) 50 ML VIAL IV ONE (12:30)
[2016-04-29] MEDS ORDERED: BUPIVACAINE 0.5% 30 ML SDV ONE (12:30)
--- NOTE | 2016-04-29 14:19 | EPPROC ---
Electrophysiology Procedure Note: PROCEDURE PERFORMED: 1. Implantation of an A/V Pacemaker 2. Subclavian vein angiography 3. Fluoroscopy INDICATION: MV and TV repair, maze procedure No underlying atrial rhythm while temporary pacing at 30 bpm PROCEDURE NOTE: Patient presented to the cardiac catheterization laboratory in a fasting, post absorptive state. Cardiac laboratory phlebotomist nurse administered moderate sedation. The left infraclavicular area was prepped and draped in the usual sterile fashion. Lidocaine plus bupivacaine was used for local anesthesia. Left subclavian venography was performed by injection of iodinated contrast into the left antecubital vein. This was done to assure patency of the vein and also to assess for any anatomical aberrations. Using a combination of blunt and sharp dissection and electrocautery, the dissection was carried down to the prepectoral fascia. A pocket was made in this anatomical plane. All bleeding was controlled with electrocautery. The pocket was packed with gauze soaked in antibiotic solution. Fluoroscopy was utilized during the entire procedure for venous access and placement of the leads. Using a direct stick technique the left extrathoracic axillary vein was accessed with 2 sticks using the modified Seldinger technique. Placement of the guidewires into the venous system was confirmed by low-pressure blood return and also by visualizing the guidewires advancing into the inferior vena cava. A purse string suture was applied around the guidewires. Two #7 Bengali sheaths were advanced under fluoroscopic guidance over the guidewire. An active fixation ventricular lead was advanced into the right ventricular apex and screwed in place. An active fixation atrial lead was advanced into the right atrial appendage and screwed in place. The peel away sheaths were removed. Pacing thresholds, sensing parameters and lead impedances were measured. There was no diaphragmatic stimulation at maximum output. The leads were sutured to the prepectoral fascia with 3 nonabsorbable sutures each. The pocket was again inspected for any bleeding. The leads were attached to the pacemaker securely. The pacemaker was inserted into the pocket and secured in place with a nonabsorbable suture. Fluoroscopy was performed in GREEN and LUCIE planes to verify right-sided placement of the leads. Also fluoroscopy of the pacemaker pocket was performed. The pacemaker pocket was closed in 3 layers with absorbable monocryl sutures and sotero. Appropriate dressing was applied. The patient left the cardiac catheterization laboratory in stable condition. Serial Numbers: 1. Device: [facility] [id number] 2. Atrial Lead: SJ [id number] SN [id number] 3. Ventricular Lead: [facility] [id number] [id number] Stimulation Thresholds & Impedance Measurements: 1. Atrial Lead 1.2 V 0.5 ms 3.6 mA no P waves 320 ohm 2. Ventricular Lead 0.5 V 0.5 ms 0.9 mA R 8.5 mV 546 ohm Eugenio Pacing Parameters 1. Pacing mode: DDDR 2. Lower rate: 70 ppm 3. Upper tracking rate: 110 ppm 4. Upper sensor rate: 110 ppm 5. PVARP programmed at 400 ms Patient Problems: Problems Problem Status Diagnosed Acute blood loss anemia Acute S/P ablation of atrial fibrillation Acute 04/25/16 S/P mitral valve repair Acute 04/25/16 S/P tricuspid valve repair Acute 04/25/16 Myxomatous mitral valve regurgitation Chronic Tricuspid regurgitation Chronic
--- NOTE | 2016-04-29 15:07 | DX ---
Portable Chest, 1449 History: Post pacemaker placement Comparison: Earlier today at 0951 Findings: A new left chest wall pacer device with overlying skin sotero is present. Bipolar pacer le ads overlie the enlarged heart. Median sternotomy wires and 2 valve replacement rings again overlie t he heart. There is no pneumothorax. Right lower lung zone consolidation with a pleural effusion remai n. There is minimal atelectasis at the medial left base. The right upper lobe and majority of the lef t lung remain well aerated. 2 right chest tubes remain in place. EKG leads again overlie the chest. A right jugular venous catheter remains in place with tip in the superior vena cava. Impression:1. Excellent pacer placement without pneumothorax. 2. Persistent dense right lower lung zone atelectasis.
--- NOTE | 2016-04-29 15:29 | CPEKG ---
Heart Rate: 72 RR Interval: 833 P-R Interval: 192 QRSD Interval: 84 QT Interval: 388 QTC Interval: 425 QRS [place]: -2 T Wave [place]: -14 EKG Severity - ABNORMAL ECG - EKG Impression: ATRIAL-PACED RHYTHM EKG Impression: ABNORMAL T, CONSIDER ISCHEMIA, INFERIOR LEADS EKG Impression: BORDERLINE ST ELEVATION, ANTEROLATERAL LEADS Electronically Signed By: Clay Graham 29-Apr-2016 17:04:53
[2016-04-29 18:35] LABS: HEPARIN INDUCED ANTIBODY Negative (Negative); REACTIVITY 5 % (<20)
[2016-04-29 20:05] LABS: POTASSIUM 3.7 mEq/L (3.5-5.2)
[2016-04-29] MEDS ORDERED: POTASSIUM CL 20 MEQ TAB PO ONE (20:13)
[2016-04-29] MEDS: CHOLECALCIFEROL VIT D3 1,000 UNITS TAB PO SCH (20:47)
[2016-04-29] MEDS: CYANO/VITAMIN B12 1000 MCG TAB PO SCH (20:47)
[2016-04-30] MEDS ORDERED: KETOROLAC 30 MG/1 ML SDV IVP PRN
[2016-04-30 05:13] LABS: % IMMATURE GRANULYOCYTES 0.5 % (0.0-1.1); ABSOLUTE IMMATURE GRANULOCYTES 0.03 10^3/uL (0.00-0.10); ADD DIFF? NO; ADD MORPH? NO; ADD SCAN? NO; ATYPICAL LYMPHOCYTE FLAG 30 (0-99); FRAGMENT RBC FLAG 0 (0-99); HEMATOCRIT 25.9 % (40.0-51.0); HEMOGLOBIN 8.6 g/dL (13.7-17.5); LEFT SHIFT FLG 10 (0-99); LIPEMIA HEMOLYSIS FLAG 80 (0-99); MEAN CELL HEMOGLOBIN 31.4 pg (27.9-34.1); MEAN CELL HEMOGLOBIN CONCENTR. 33.2 g/dL (32.4-36.7); MEAN CELL VOLUME 94.5 fL (81.5-99.8); PLATELET CLUMPS FLAG 0 (0-99); PLATELET COUNT 93 10^3/uL (150-400); RED BLOOD CELL COUNT 2.74 10^6/uL (4.40-6.38); RED CELL DISTRIBUTION WIDTH 12.4 % (11.5-15.2)
[2016-04-30 06:05] LABS: ANION GAP 7 mEq/L (8-16); CALCIUM 8.2 mg/dL (8.5-10.4); CARBON DIOXIDE 34 mEq/l (22-31); CHLORIDE 95 mEq/L (97-110); CREATININE 0.8 mg/dL (0.7-1.3); GLOMERULAR FILTRATION RATE > 60; GLUCOSE 96 mg/dL (70-100); POTASSIUM 4.7 mEq/L (3.5-5.2); SODIUM 136 mEq/L (134-144)
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
--- NOTE | 2016-04-30 09:00 | CPEKG ---
Heart Rate: 73 RR Interval: 822 P-R Interval: 163 QRSD Interval: 84 QT Interval: 384 QTC Interval: 424 QRS [place]: 19 T Wave [place]: -5 EKG Severity - ABNORMAL ECG - EKG Impression: ATRIAL-PACED RHYTHM EKG Impression: MINIMAL ST ELEVATION, LATERAL LEADS Electronically Signed By: Clay Graham 30-Apr-2016 11:08:45
[2016-04-30] MEDS: APIXABAN 5 MG TAB PO SCH ×2 (09:45→21:24)
[2016-04-30] MEDS: POTASSIUM CL 20 MEQ TAB PO SCH ×3 (09:45→21:24)
[2016-04-30] MEDS: FUROSEMIDE 40 MG TAB PO SCH ×2 (11:19→15:56)
--- NOTE | 2016-04-30 12:00 | PDCARPN ---
Cardiology Progress Note Assessment/Plan: Assessment: POST PACEMAKER PLACEMENT 04/29/16 Pacemaker placed due to episodes of Junctional Bradycardia, Sinus node dysfunction. S/P MVR 04/26/16.. Pacer check today shows normal function. CXR results are pending. Plan: Stable for discharge post pacemaker. Follow up in clinic for Pacemaker check and wound check in one week on May 06 2016 at 4:15. . Follow up in one month with Dr Graham. 04/30/16 11:55 04/30/16 15:24 Objective: Vital Signs (8 Hrs) Temp Pulse Resp BP Pulse Ox 04/30/16 11:30 36.4 C 77 19 100/71 90 L 04/30/16 09:47 85 L 04/30/16 09:45 96 04/30/16 07:34 36.9 C 70 18 88/57 L 95 04/30/16 04:05 91/54 L 04/30/16 04:00 37.1 C 73 16 89/52 L 97 Intake/Output (24 Hrs) 04/29/16 04/30/16 05/01/16 05:59 05:59 05:59 Intake Total 550 1000 350 Output Total 3405 3850 200 Balance -2855 -2850 150 Intake: Oral (ml) 550 1000 350 Output: Urine (ml) 3325 3775 200 Urinal 3325 3775 200 Chest Tube Drainage (ml) 80 75 Location 2 Mediastinal 45 25 Location 3 Right Pleural 35 50 Other: Weight 65.2 kg 59.1 kg Number of Voids Urinal 2 1 Result Diagrams: 04/30/16 04:18 04/30/16 04:18 - Physical Exam Constitutional: WDWN, no apparent distress Cardiovascular: regular rate and rhythm, no murmurs, no rubs Respiratory: clear to auscultate bilat, no crackles, no wheezes Skin: warm, no edema Musculoskeletal: other (Pacemaker site left pec intact with no bleeding, ecchymosis, and mild tenderness,) Neurologic: AAOx3 Psychiatric: cooperative, interactive ICD10 Worksheet Patient Problems: Problems Problem Status Diagnosed Sinus node dysfunction Acute Status post placement of cardiac pacemaker Acute 04/29/16 Acute blood loss anemia Acute S/P ablation of atrial fibrillation Acute 04/25/16 S/P mitral valve repair Acute 04/25/16 S/P tricuspid valve repair Acute 04/25/16 Myxomatous mitral valve regurgitation Chronic Tricuspid regurgitation Chronic
--- NOTE | 2016-04-30 16:25 | DX ---
PA and Lateral Chest April 30, 2016 History: Post pacemaker placement. Recent open heart surgery. Comparison: Portable chest April 29, 2016. CT angiogram chest April 06, 2016. Findings: Internal jugular catheter, mediastinal drain, and right chest tube have been removed. Marito l lead left subclavian pacemaker is present, with leads in expected position. There is no visible pn eumothorax. Elevation of the right hemidiaphragm, with a small pleural effusion, and associated atel ectasis is not significantly changed. A tiny left effusion is new since the comparison. Mild cardio megaly is stable. Air in the mediastinum is consistent with recent open heart surgery. The bones ar e stable. Impression: 1. Dual lead left subclavian pacemaker in expected position, with no visible pneumothorax. 2. Stable right basilar atelectasis, with a small effusion, with a new small left effusion.
[2016-04-30] MEDS ORDERED: FERROUS SULFATE 325 MG TAB PO SCH (18:00)
[2016-04-30 20:49] VITALS: RESP 16
[2016-04-30] MEDS: CYANO/VITAMIN B12 1000 MCG TAB PO SCH (21:21)
[2016-04-30] MEDS: CHOLECALCIFEROL VIT D3 1,000 UNITS TAB PO SCH ×2 (21:21→21:29)
[2016-05-01 05:33] LABS: HEMOGLOBIN 8.8 g/dL (13.7-17.5); MEAN CELL HEMOGLOBIN 32.1 pg (27.9-34.1); MEAN CELL HEMOGLOBIN CONCENTR. 33.8 g/dL (32.4-36.7); MEAN CELL VOLUME 94.9 fL (81.5-99.8); RED BLOOD CELL COUNT 2.74 10^6/uL (4.40-6.38); RED CELL DISTRIBUTION WIDTH 12.2 % (11.5-15.2)
[2016-05-01 05:57] LABS: POTASSIUM 4.2 mEq/L (3.5-5.2)
[2016-05-01] MEDS: FUROSEMIDE 40 MG TAB PO SCH (08:27)
[2016-05-01] MEDS: APIXABAN 5 MG TAB PO SCH (08:28)
[2016-05-01] MEDS: POTASSIUM CL 20 MEQ TAB PO SCH (08:28)
--- NOTE | 2016-05-01 08:35 | SOAPPROG ---
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 No pain. Would like to go home today. Objective: Vital Signs Temp Pulse Resp BP Pulse Ox 36.5 C 75 16 98/64 L 92 05/01/16 08:00 05/01/16 08:00 05/01/16 08:00 05/01/16 08:00 05/01/16 08:00 Laboratory Results 05/01/16 03:57 05/01/16 03:57 04/30/16 05/01/16 05/02/16 05:59 05:59 05:59 Intake Total 1000 1200 Output Total 3850 2375 380 Balance -2850 -1175 -380 PT 13.8 SEC (12.0-15.0) 04/29/16 04:38 INR 1.07 (0.83-1.16) 04/29/16 04:38 Physical Exam - Physical Exam General Appearance: WD/WN, alert, no apparent distress EENT: No scleral icterus (R), No scleral icterus (L) Neck: normal inspection Respiratory: chest non-tender, lungs clear, normal breath sounds Cardiac/Chest: regular rate, rhythm Abdomen: non-tender, soft, No distended Skin: normal color, warm/dry Extremities: pedal edema (+1 B/L LE) Neuro/Psych: no motor/sensory deficits, alert, normal mood/affect, oriented x 3 ICD10 Worksheet Patient Problems: Problems Problem Status Diagnosed Sinus node dysfunction Acute Status post placement of cardiac pacemaker Acute 04/29/16 Acute blood loss anemia Acute S/P ablation of atrial fibrillation Acute 04/25/16 S/P mitral valve repair Acute 04/25/16 S/P tricuspid valve repair Acute 04/25/16 Myxomatous mitral valve regurgitation Chronic Tricuspid regurgitation Chronic
[2016-05-01 11:49] VITALS: BP 95/68; PULSE 74; TEMP 97.8; O2SAT 91
--- NOTE | 2016-05-01 16:02 | PDDCSUM ---
Discharge Summary Discharge Summary: ADMISSION DATE: 04/25/16 DISCHARGE DATE: 05/01/16 ADMISSION DX: 1. Severe mitral valve insufficiency with prior mitral valve repair 2. Severe tricuspid valve insufficiency 3. Class IV congestive heart failure 4. Atrial arrhythmias DISCHARGE DX: 1. Severe mitral valve insufficiency with prior mitral valve repair 2. Severe tricuspid valve insufficiency 3. Class IV congestive heart failure 4. Atrial arrhythmias 5. Acute blood loss anemia with thrombocytopenia 6. Junctional rhythm SECONDARY DX: 1. Obstructive sleep apnea CONSULTS: 1. Pulmonology/Critical care: Dionte Minor PROCEDURES: 04/25/16, Butch Strong, DO: 1. Reoperation re-repair of mitral valve with quadrangular resection and reduction of the annulus size and placement of #34 Physio annuloplasty ring with closure of P1, P2 cleft 2. Tricuspid valve repair with #34 Physio annuloplasty 3. Hassan-Maze IV, left and right sided lesions 04/29/16, Clay Graham MD: 1. Implantation of A/V pacemaker HPI: Pt with prior MV repair with severe MR, severe TR, atrial arrhythmias and class 4 heart failure admitted electively for surgery. HOSPITAL COURSE: The patient underwent the procedures above and was transferred to the ICU in stable condition. He was dependent on external pacing due to an underlying junctional rhythm and a permanent A/V pacemaker was implanted as a result. Eliquis was then started for valve thromboprophylaxis for a total duration of 3 months barring atrial arrhythmias. The patient's fluid status was optimized and he was discharged home. CONDITION - Good DISPOSITION: - Home ACTIVITY: Pt was instructed on sternal precautions, activity limitations, and which problems to call [facility] with. Please see Discharge Plan in chart for specifics. D/C MEDICATIONS: 1. Zolpidem Tartrate [Ambien 5MG (*)] 5 mg PO HS PRN 2. Cholecalciferol Vit D3 [Vitamin D3 (*)] 5,000 units PO HS 3. Cyanocobalamin (Vitamin B-12) [B-12] 1,000 mcg PO HS 4. Acetaminophen [Tylenol 325mg (*)] 650 mg PO Q4HRS PRN 5. Apixaban [Eliquis] 5 mg PO BID #60 6. Ferrous Sulfate [Ferrous Sulf 325 MG (*)] 325 mg PO DAILY@1800 #30 7. Furosemide [Lasix 40 MG (*)] 40 mg PO BID@0900,1500 #60 8. Potassium Cl [Klor-Con 20 meq (*)] 20 meq PO BID #60 PENDING STUDIES/LABS: 1. CXR - 05/06/16 2. AUDIE, CBC - 05/06/16 F/U APPOINTMENTS: 1. Butch Strong DO - 05/06/16, 3:00 PM 2. Cortney Sheffield NP - 05/06/16, 4:45 PM 3. Clay Graham MD - 05/28/16, 1:00 PM
== END 2016-05-01 12:58 | disposition home or self-care (01) | DRG 219 ==
LOC: F2N 05:55 → F2W 04-29 14:58
PROVIDERS: ADMIT Thoracic Surgery (Cardiothoracic Vascular Surgery); ATTEND Thoracic Surgery (Cardiothoracic Vascular Surgery)
PROC: 5A1221Z Performance of Cardiac Output, Continuous (ICD-10-PCS; principal; 2016-04-25 07:21)
PROC: 02UJ0JZ Supplement Tricuspid Valve with Synthetic Substitute, Open Approach (ICD-10-PCS; principal; 2016-04-25 07:21)
PROC: 02B70ZK Excision of Left Atrial Appendage, Open Approach (ICD-10-PCS; principal; 2016-04-25 07:21)
PROC: 02UG0JZ Supplement Mitral Valve with Synthetic Substitute, Open Approach (ICD-10-PCS; principal; 2016-04-25 07:21)
PROC: 02580ZZ Destruction of Conduction Mechanism, Open Approach (ICD-10-PCS; principal; 2016-04-25 07:21)
PROC: 0JH636Z Insertion of Pacemaker, Dual Chamber into Chest Subcutaneous Tissue and Fascia, Percutaneous Approach (ICD-10-PCS; 2016-04-29)
PROC: 02H63JZ Insertion of Pacemaker Lead into Right Atrium, Percutaneous Approach (ICD-10-PCS; 2016-04-29)
PROC: 02HK3JZ Insertion of Pacemaker Lead into Right Ventricle, Percutaneous Approach (ICD-10-PCS; 2016-04-29)
DX: T82.897A Other specified complication of cardiac prosthetic devices, implants and grafts, initial encounter (principal); I36.1 Nonrheumatic tricuspid (valve) insufficiency; I51.1 Rupture of chordae tendineae, not elsewhere classified; I49.9 Cardiac arrhythmia, unspecified; I34.0 Nonrheumatic mitral (valve) insufficiency; D62 Acute posthemorrhagic anemia; G47.33 Obstructive sleep apnea (adult) (pediatric); R73.9 Hyperglycemia, unspecified
CPT/HCPCS: 82947-QW; 86022-90; 92610-GN; 97116-GP; 97161-GP; 97165-GO; 97530-GO; 97535-GO; J0153; J0282; J0690; J1100; J1265; J1644; J1885; J2001; J2250; J2260; J2370; J2405; J2704; J2720; J2765; J2930; J3010; J3370; J7060; P9021; P9041; Q9967

== ENCOUNTER → 2016-05-06 | Outpatient (CLI) | payer OTHER | LOC: FIMAGING 15:07 | PROVIDERS: ATTEND Thoracic Surgery (Cardiothoracic Vascular Surgery) | DX: Z48.812 Encounter for surgical aftercare following surgery on the circulatory system (principal); Z95.2 Presence of prosthetic heart valve ==

== ENCOUNTER → 2018-06-22 | Outpatient (CLI) | payer OTHER, MEDICARE | LOC: BHFA 09:00 | PROVIDERS: ATTEND Internal Medicine Cardiovascular Disease | DX: R06.02 Shortness of breath (principal); I47.2 Ventricular tachycardia; Z98.890 Other specified postprocedural states | CPT/HCPCS: 78452; 93017; A9500 ==

== ENCOUNTER → 2018-06-24 | Outpatient (CLI) | payer OTHER, MEDICARE | LOC: BHFA 16:15 | PROVIDERS: ATTEND Internal Medicine Cardiovascular Disease | DX: R06.02 Shortness of breath (principal); I34.1 Nonrheumatic mitral (valve) prolapse; I48.91 Unspecified atrial fibrillation; I77.810 Thoracic aortic ectasia ==

== ENCOUNTER → 2018-06-29 | Outpatient (CLI) | payer OTHER, MEDICARE ==
[~2018-06-29] MED LIST: IOPAMIDOL (ISOVUE 370) 100 ML BTL IV ONE
== END ==
LOC: FIMAGING 15:47
PROVIDERS: ATTEND Internal Medicine Cardiovascular Disease
DX: I77.810 Thoracic aortic ectasia (principal); R91.1 Solitary pulmonary nodule
CPT/HCPCS: 71275; Q9967

== ENCOUNTER → 2018-07-07 | Outpatient (CLI) | payer OTHER, MEDICARE | LOC: FIMAGING 08:00 | PROVIDERS: ATTEND Internal Medicine Cardiovascular Disease | DX: K76.9 Liver disease, unspecified (principal); K82.4 Cholesterolosis of gallbladder; K76.89 Other specified diseases of liver ==